=== PATIENT | female | born 1995 | race Caucasian/White ===

== ENCOUNTER 2019-08-13 10:47 | Inpatient (IN) ==
--- NOTE | 2019-08-13 11:20 | Emergency Department Note ---
History of Present Illness General Chief complaint: Abnormal Labs/Diagnostic Testing Stated complaint: JAUNDICE Time Seen by Provider: 08/13/19 11:02 Source: patient History of Present Illness Provider complaint: Itching and skin change Onset (ago): day(s) Location: face, neck, abdomen, upper extremity and lower extremity Severity: moderate Quality: + other (Itching) Relieved By: + none Associated symptoms: + nausea/vomiting (Vomited once several days ago) and + other (Diarrhea); no fever/chills and no shortness of breath Treatments prior to arrival: none This is a 23-year-old female who presents with diffuse itching and change in the coloration of her skin. The itching started 2 weeks ago. The yellowing of her eyes started 2 days ago. The patient was sent here by [facility] as she had an ultrasound of her gallbladder today which showed multiple stones in CBD dilation. She is also told that her bilirubin is elevated. She has had on and off abdominal pain in the epigastric region for about 8 months. She was seen in February of last year by a GI doctor in [place] who performed colonoscopy and endoscopy which was unremarkable. She developed itching and blood work was sent 2 days ago. This showed a bilirubin of 11. She does state that she is an occasional drinker but was a heavier drinker when she was enrolled in college. She currently denies having any abdominal pain. Her pain used to be exacerbated after eating. She denies any fever, nausea, urinary symptoms, abnormal vaginal discharge or bleeding, cough or cold symptoms, body ache or exposure to anyone with COVID-19. She does state that she has had loose diarrhea for the past several days as well as yellowish discoloration to her eyes and skin. She also threw up once several days ago. She denies any acetaminophen use. Home Medications Home Medications Medication Instructions Recorded Confirmed Type Control 1 tab PO DAILY 08/13/19 08/13/19 History Allergies Allergy/AdvReac Type Severity Reaction Status Date / Time Sulfa (Sulfonamide AdvReac Mild Hives Unverified 08/13/19 11:29 Antibiotics) Past Med/Surg History Medical History Anxiety Social History Feels Safe at Home: Yes Smoking Status: Never smoker Hx Alcohol Use: Yes Review of Systems See HPI for pertinent positives & negatives. and A total of 10 systems reviewed and were otherwise negative Physical Exam Vital Signs Vital Signs - 24 hr 08/13/19 10:55 08/13/19 11:10 08/13/19 12:34 Temperature 36.7 C Temperature Source Oral Pulse Rate 119 H 86 Pulse Rate [Left Finger] 85 Pulse Rhythm Regular Pulse Rhythm [Left Finger] Regular Pulse Strength [Left Finger] Normal Respiratory Rate 20 18 20 Respiratory Effort / Characteristics Non-Labored Spontaneous Respiratory Depth Normal Normal Respiratory Pattern Regular Blood Pressure 118/86 Blood Pressure [Right Arm] 132/71 Blood Pressure Mean 96 Blood Pressure Mean [Right Arm] 91 Blood Pressure Position [Right Arm] Sitting Pulse Oximetry 99 99 100 Oxygen Delivery Method Room Air Room Air Room Air Sepsis Recent Fever Within 48 Hours No Sepsis New/Unexplained Change in Mental Status No Sepsis Action Taken by Nursing No Action Required Constitutional: Vital signs reviewed. Eyes: Pupils are equal round reactive to light. Sclera are icteric. ENT: Pharynx is clear without erythema or exudate. Mucous membranes are moist. Neck supple without meningeal signs. Respiratory: Clear to auscultation bilaterally. Breath sounds are equal bilaterally. Cardiovascular: Regular rate and rhythm. No rubs or gallops. GI: Soft, nondistended with mild epigastric and right upper quadrant tenderness. No Rosado sign. Bowel sounds are present. Musculoskeletal: No peripheral edema. No lower extremity tenderness. Integumentary: Jaundiced. Neurological: The patient is awake and alert. No focal deficits. Psychiatric: Normal affect. Not anxious appearing. Course Administered Medications Discontinued Medications Sodium Chloride (Nss 1000ml) 1,000 mls @ 999 mls/hr IV .Q1H1M ONE Stop: 08/13/19 13:57 Last Admin: 08/13/19 13:17 Dose: 999 mls/hr Documented by: [id number] Piperacillin Sod/Tazobactam Sod (Zosyn) 4.5 gm in 120 mls @ 240 mls/hr IV NOW ONE Stop: 08/13/19 13:42 Last Admin: 08/13/19 13:29 Dose: 240 mls/hr Documented by: [id number] Piperacillin Sod/Tazobactam Sod (Zosyn) Confirm Administered Dose 4.5 gm .ROUTE .STK-MED ONE Stop: 08/13/19 13:20 Last Admin: 08/13/19 13:29 Dose: Not Given Documented by: [id number] Medical Decision Making Differential Diagnosis Cholelithiasis, choledocholithiasis, cholecystitis, pancreatitis, biliary obstruction, hyperbilirubinemia Medical Records Attestation: I reviewed the patient's medical records. I did perform a limited focused review of portions of the patient's old chart on the electronic medical record. The patient has had no prior visits to this hospital. Home Medications Current Medication List: was personally reviewed by me Laboratory Data Attestation: I reviewed the patient's lab results. Result diagrams: 08/13/19 11:10 08/13/19 11:10 Lab Results 08/13/19 08/13/19 08/13/19 Range/Units 11:10 11:10 12:38 WBC 12.89 H (4.8-10.8) K/uL RBC 4.70 (4.2-5.4) M/uL Hgb 13.1 (12.0-16.0) g/dL Hct 39.4 (37-47) % MCV 83.8 (80-100) fL MCH 27.9 (25-34) pg MCHC 33.2 (32-36) g/dL RDW Std Deviation 47.4 H (36.4-46.3) fL RDW Coeff of [place] 15.4 H (11.5-14.5) % Plt Count 366 (130-400) K/uL MPV 10.9 H (7.4-10.4) fL Immature Gran % (Auto) 0.5 % Neut % (Auto) 63.1 % Lymph % (Auto) 28.2 % [place] % (Auto) 6.6 % Eos % (Auto) 1.4 % Baso % (Auto) 0.2 % Immature Gran # (Auto) 0.07 H (0.00-0.02) K/uL Neut # (Auto) 8.12 H (1.4-6.5) K/uL Lymph # (Auto) 3.64 H (1.2-3.4) K/uL [place] # (Auto) 0.85 H (0.11-0.59) K/uL Eos # (Auto) 0.18 (0-0.5) K/uL Baso # (Auto) 0.03 (0-0.2) K/uL Sodium 138 (136-145) mmol/L Potassium 3.4 L (3.5-5.1) mmol/L Chloride 106 (98-107) mmol/L Carbon Dioxide 25 (21-32) mmol/L Anion Gap 7.0 (3-11) BUN 11 (7-18) mg/dl Creatinine 0.77 (0.6-1.2) mg/dl Est Cr Clr Drug Dosing 135.6 ml/min Est GFR ( Amer) 127.9 Est GFR (Non-Af Amer) 110.4 BUN/Creatinine Ratio 14.7 (10-20) Glucose 102 H (70-99) mg/dl Calcium 9.2 (8.5-10.1) mg/dl Total Bilirubin 11.4 H (0.2-1) mg/dl AST 28 (15-37) U/L ALT 76 (12-78) U/L Alkaline Phosphatase 324 H (45-117) U/L Total Protein 7.8 (6.4-8.2) gm/dl Albumin 3.2 L (3.4-5.0) gm/dl Globulin 4.6 H (2.5-4.0) gm/dl Albumin/Globulin Ratio 0.7 L (0.9-2) Lipase 117 (73-393) U/L Urine Color Urine Appearance (Clear) Urine pH (4.5-7.5) Ur Specific [place] (1.000-1.030) Urine Protein (Negative) Urine Glucose (UA) (Negative) Urine Ketones (Negative) Urine Blood (Negative) Urine Nitrite (Negative) Urine Bilirubin (Negative) Urine Urobilinogen (Negative) Ur Leukocyte Esterase (Negative) Urine WBC (Auto) (0-5) /hpf Urine RBC (Auto) (0-4) /hpf U Hyaline Cast (Auto) (0-5) /lpf U Epithel Cells (Auto) (0-5) /lpf Urine Bacteria (Auto) (Negative) POC Ur Test NEG (NEG) 08/13/19 Range/Units 12:38 WBC (4.8-10.8) K/uL RBC (4.2-5.4) M/uL Hgb (12.0-16.0) g/dL Hct (37-47) % MCV (80-100) fL MCH (25-34) pg MCHC (32-36) g/dL RDW Std Deviation (36.4-46.3) fL RDW Coeff of [place] (11.5-14.5) % Plt Count (130-400) K/uL MPV (7.4-10.4) fL Immature Gran % (Auto) % Neut % (Auto) % Lymph % (Auto) % [place] % (Auto) % Eos % (Auto) % Baso % (Auto) % Immature Gran # (Auto) (0.00-0.02) K/uL Neut # (Auto) (1.4-6.5) K/uL Lymph # (Auto) (1.2-3.4) K/uL [place] # (Auto) (0.11-0.59) K/uL Eos # (Auto) (0-0.5) K/uL Baso # (Auto) (0-0.2) K/uL Sodium (136-145) mmol/L Potassium (3.5-5.1) mmol/L Chloride (98-107) mmol/L Carbon Dioxide (21-32) mmol/L Anion Gap (3-11) BUN (7-18) mg/dl Creatinine (0.6-1.2) mg/dl Est Cr Clr Drug Dosing ml/min Est GFR ( Amer) Est GFR (Non-Af Amer) BUN/Creatinine Ratio (10-20) Glucose (70-99) mg/dl Calcium (8.5-10.1) mg/dl Total Bilirubin (0.2-1) mg/dl AST (15-37) U/L ALT (12-78) U/L Alkaline Phosphatase (45-117) U/L Total Protein (6.4-8.2) gm/dl Albumin (3.4-5.0) gm/dl Globulin (2.5-4.0) gm/dl Albumin/Globulin Ratio (0.9-2) Lipase (73-393) U/L Urine Color Dark Yellow Urine Appearance Clear (Clear) Urine pH 6.5 (4.5-7.5) Ur Specific [place] 1.025 (1.000-1.030) Urine Protein Negative (Negative) Urine Glucose (UA) Negative (Negative) Urine Ketones Negative (Negative) Urine Blood Negative (Negative) Urine Nitrite Positive A (Negative) Urine Bilirubin 3+ H (Negative) Urine Urobilinogen Negative (Negative) Ur Leukocyte Esterase 1+ H (Negative) Urine WBC (Auto) 5-10 H (0-5) /hpf Urine RBC (Auto) 5-10 H (0-4) /hpf U Hyaline Cast (Auto) 1-5 (0-5) /lpf U Epithel Cells (Auto) 20-30 H (0-5) /lpf Urine Bacteria (Auto) 1+ H (Negative) POC Ur Test (NEG) MDM Narrative I did evaluate the patient as noted above. The patient is presenting with jaundice, pruritus and intermittent right upper quadrant abdominal pain. Her ultrasound shows multiple gallstones within the gallbladder and CBD dilatation up to 11 mm. The patient denies any abdominal pain but does have tenderness in the right upper quadrant when examined. IV access was established. I did order a urine analysis. I did order and review the patient's blood work as noted in the electronic medical record. Her white count is 12.9. Potassium is 3.4. Bilirubin is over 11. I did discuss the case with Dr. Michaels of gastroenterology. He stated he would take the patient for ERCP at 4 PM today and recommended hospitalization by the hospitalist service. I did discuss this with the patient as well as her mother over the telephone per the patient's request. I did discuss the case with Dr. Fernandez of the hospitalist service. She was started on normal saline IV. Impression & Plan Choledocholithiasis, Hyperbilirubinemia, Acute hypokalemia, UTI (urinary tract infection) Discharge Plan Visit Data Chief Complaint: Abnormal Labs/Diagnostic Testing Stated Complaint: JAUNDICE ED Provider: Charan Yañez Discharge Problem: Choledocholithiasis, Hyperbilirubinemia, Acute hypokalemia, UTI (urinary tract infection) Patient Disposition: Being Evaluated by Hospitalist Condition: Good Forms Stand Alone Forms: My [employer] Prescriptions Prescriptions: No Action Control 1 tab PO DAILY RF: 0 Referrals Referrals: PCP,NO [Primary Care Provider] -
[2019-08-13 11:28] LABS: Basophils # (auto) 0.03 K/uL (0-0.2); Basophils % (auto) 0.2 %; Eosinophils # (auto) 0.18 K/uL (0-0.5); Eosinophils % (auto) 1.4 %; Hematocrit (blood only) 39.4 % (37-47); Hemoglobin 13.1 g/dL (12.0-16.0); Immature Granulocytes # (auto) 0.07 K/uL (0.00-0.02); Immature Granulocytes % (auto) 0.5 %; Lymphocytes # (auto) 3.64 K/uL (1.2-3.4); Lymphocytes % (auto) 28.2 %; Mean Corpuscular Hemoglobin 27.9 pg (25-34); Mean Corpuscular Hgb Conc 33.2 g/dL (32-36); Mean Corpuscular Volume 83.8 fL (80-100); Mean Platelet Volume 10.9 fL (7.4-10.4); Monocytes # (auto) 0.85 K/uL (0.11-0.59); Monocytes % (auto) 6.6 %; Neutrophils # (auto) 8.12 K/uL (1.4-6.5); Neutrophils % (auto) 63.1 %; Platelet Count 366 K/uL (130-400); RDW Coefficient of Variation 15.4 % (11.5-14.5); RDW Standard Deviation 47.4 fL (36.4-46.3); White Blood Count 12.89 K/uL (4.8-10.8)
[2019-08-13 11:58] LABS: Albumin Globulin Ratio 0.7 (0.9-2); Albumin Level 3.2 gm/dl (3.4-5.0); BUN Creatinine Ratio 14.7 (10-20); Bilirubin,Total 11.4 mg/dl (0.2-1); Calcium 9.2 mg/dl (8.5-10.1); Creatinine Clr Calc Pharmacy 135.6 ml/min; Est GFR (African American) 127.9; Est GFR (Non-African American) 110.4; Globulin 4.6 gm/dl (2.5-4.0); Potassium 3.4 mmol/L (3.5-5.1); Total Protein 7.8 gm/dl (6.4-8.2)
[2019-08-13 12:46] LABS: Appearance Urine Clear (Clear); Blood Urine Negative (Negative); Color Urine Dark Yellow; Epithelial Cell Urine Auto 20-30 /lpf (0-5); Glucose Urine UA Negative (Negative); Ketones Urine Negative (Negative); Leukocyte Esterase Urine 1+ (Negative); Nitrite Urine Positive (Negative); Protein Urine Negative (Negative); Specific Gravity Urine 1.025 (1.000-1.030); Urobilinogen Urine Negative (Negative); pH Urine 6.5 (4.5-7.5)
[2019-08-13 12:47] LABS: Bilirubin Urine 3+ (Negative)
[2019-08-13 12:48] LABS: Ictotest Urine Positive (Negative)
[2019-08-13 12:56] LABS: Bacteria Urine Automated 1+ (Negative)
[2019-08-13] MEDS ORDERED: SODIUM CHLORIDE 0.9% 1000ML 1,000 ML IV ONE (12:57)
[2019-08-13] MEDS ORDERED: PIPERACILL/TAZOBAC CONSULT ACTIVE PRN ×2 (13:13→14:44)
[2019-08-13] MEDS ORDERED: PIPERACILLIN/TAZOBACTAM 4.5 GM/120 ML BAG IV ONE (13:13)
--- NOTE | 2019-08-13 13:14 | History & Physical Report ---
Date of Service August 13, 2019 Assessment & Plan (1) Common bile duct dilation: CBD dilatation is concerning for choledocholithiasis. Her chills and leukocytosis could represent ascending cholangitis +/- early cholecystitis as well. Recent steroids may have contributed to leukocytosis as well. Send blood cx's, agree with Zosyn initiated in ER, keep NPO, and GI has been consulted for ERCP. Start copious IV fluids. (2) Hyperbilirubinemia: 2nd to CBD obstruction - likely from gallstones. Pruritis etc is all 2nd to hyperbilirubinemia. ERCP today. Will need lap zenon in the future as well - timing of such is uncertain. (3) Gallstones: Has had biliary colic episodes for months. Now with likely choledocholithiasis; cannot rule out cholangitis; cannot rule out early cholecystitis given her RUQ abd pain on exam. General surgery has been consulted for possibility of lap zenon during this admission. (4) Acute hypokalemia: add KCL to IV fluids. (5) Anxiety: previously was on SSRI - no longer taking. address as outpatient. (6) DVT prophylaxis: ambulation. defer on chemical means for now due to impending ERCP +/- cholecystectomy. of note - urine HCG was negative. COVID assessment - low risk, no symptoms of such. Travel from [place] was well over 14 days ago. Labs in am. History of Present Illness Chief Complaint: jaundice, nausea, itching Primary Care Provider: NO PCP 23yo female who presents with 8 months of intermittent epigastric post-prandial abdominal pain, 1 week of pruritis of her hands/feet, then the development of jaundice about 2 days ago. Over the last few days she has also had nausea. 1 episode of emesis about 1 week ago. Denies fevers, but has had some chills. Interestingly she says the intermittent abdominal pain has not bothered her in several days. Seen at [facility] on-[facility] this am for these complaints and was sent for RUQ u/s at [facility] which showed gallstones, 11mm CBD, and +rosado's sign. Following this RUQ u/s she was directed to the ER. She recently took 2 days of prednisone prescribed as an outpatient for her itching. She also had been taking zyrtec. COVID screen - traveled from [place] to [place] on July 22. Has had NO fever, cough, congestion, sore throat, runny nose, dyspnea, or chest symptoms. Just chills over the last day associated with the nausea. O2 sats 100% in RA at presentation today. Allergies Allergy/AdvReac Type Severity Reaction Status Date / Time Sulfa (Sulfonamide Allergy Mild Hives Unverified 08/13/19 15:04 Antibiotics) Home Medications Home Medications Medication Instructions Recorded Confirmed Type L norgest/e.estradiol-e.estrad 1 tab PO DAILY 08/13/19 08/13/19 History [[place]] Past Med/Surg History Medical History (Updated 08/13/19 @ 17:01 by Luis Fernandez) Anxiety Pilonidal cyst Surgical History History of colonoscopy (Acute) Family History (Updated 08/13/19 @ 16:35 by Luis Fernandez) Father Colorectal cancer Grandmother Gallstones Social History (Updated 08/13/19 @ 16:24 by Luis Fernandez) marital status: Single current occupational status: student other: lives in [place], [place]; attends [employer]; boyfriend in [place] Feels Safe at Home: Yes Smoking Status: Never smoker Hx Alcohol Use: Yes Alcohol type: hard liquor Alcohol Intake Frequency: Weekly Alcohol Intake Frequency Comment: 3-4x's each week, several drinks each time Hx Substance Use: No Review of Systems Constitutional: + chills; no fever, no body aches, no fatigue, no anorexia and no weight loss Eyes: no worsening vision Ear, Nose, Mouth, Throat: no nasal congestion, no nasal discharge and no sore throat Respiratory: no cough, no dyspnea and no wheezing Cardiovascular: no chest pain, no dyspnea at rest and no dyspnea on exertion Gastrointestinal: as per Subjective / HPI, + abdominal pain, + nausea and + vomiting; no constipation and no diarrhea/loose stools Genitourinary: no dysuria last menstrual cycle ~3 weeks ago Musculoskeletal: no joint pain Integumentary: + pruritus; no rash Neurologic: no localized weakness and no generalized weakness Psychiatric: + depression and + anxiety had been taking lexapro but stopped this spring Hematologic / Lymphatic: no easy bleeding Physical Exam Constitutional: + obese; no acute distress and no altered mental status Eyes: + scleral abnormality (icteric) and PERRL ENMT: Mouth: + oral mucosal abnormality (icterus ) Neck: trachea midline, no thyromegaly Respiratory: normal respiratory effort, lungs clear to auscultation Cardiovascular: Rate/Rhythm: regular rate and regular rhythm Heart Sounds: normal S1 and normal S2; no murmur Vessels: posterior tibial pulses present and dorsalis pedis pulses present; no JVD Extremities: no edema Gastrointestinal (Abdomen): Inspection/Auscultation: normal bowel sounds; abdomen not distended Percussion/Palpation: + abdomen tender (mild- RUQ) and abdomen soft; no guarding and no hepatosplenomegaly Musculoskeletal: no cyanosis or clubbing, extremities motor strength 5/5 Skin: + jaundice (from head to umbilicus ) Neurologic: deep tendon reflexes 2+ bilaterally and moves all extremities Psychiatric: A+Ox3, euthymic affect Lymphatic: no cervical lymphadenopathy Results & Data Results & Data ([facility]) Vital Signs (Past 12 Hours) Vital Signs Temp Pulse Pulse Resp BP BP Pulse Ox 08/13/19 12:34 85 20 132/71 100 08/13/19 11:10 86 18 99 08/13/19 10:55 36.7 C 119 H 20 118/86 99 Laboratory Results Laboratory Results - last 24 hr 08/13/19 08/13/19 08/13/19 11:10 11:10 12:38 WBC 12.89 H RBC 4.70 Hgb 13.1 Hct 39.4 MCV 83.8 MCH 27.9 MCHC 33.2 RDW Std Deviation 47.4 H RDW Coeff of [place] 15.4 H Plt Count 366 MPV 10.9 H Immature Gran % (Auto) 0.5 Neut % (Auto) 63.1 Lymph % (Auto) 28.2 [place] % (Auto) 6.6 Eos % (Auto) 1.4 Baso % (Auto) 0.2 Immature Gran # (Auto) 0.07 H Neut # (Auto) 8.12 H Lymph # (Auto) 3.64 H [place] # (Auto) 0.85 H Eos # (Auto) 0.18 Baso # (Auto) 0.03 PT INR APTT PTT Ratio Sodium 138 Potassium 3.4 L Chloride 106 Carbon Dioxide 25 Anion Gap 7.0 BUN 11 Creatinine 0.77 Est Cr Clr Drug Dosing 135.6 Est GFR ( Amer) 127.9 Est GFR (Non-Af Amer) 110.4 BUN/Creatinine Ratio 14.7 Glucose 102 H Calcium 9.2 Total Bilirubin 11.4 H AST 28 ALT 76 Alkaline Phosphatase 324 H Total Protein 7.8 Albumin 3.2 L Globulin 4.6 H Albumin/Globulin Ratio 0.7 L Lipase 117 Urine Color Urine Appearance Urine pH Ur Specific [place] Urine Protein Urine Glucose (UA) Urine Ketones Urine Blood Urine Nitrite Urine Bilirubin Urine Urobilinogen Ur Leukocyte Esterase Urine WBC (Auto) Urine RBC (Auto) U Hyaline Cast (Auto) U Epithel Cells (Auto) Urine Bacteria (Auto) POC Ur Test NEG 08/13/19 08/13/19 12:38 14:14 WBC RBC Hgb Hct MCV MCH MCHC RDW Std Deviation RDW Coeff of [place] Plt Count MPV Immature Gran % (Auto) Neut % (Auto) Lymph % (Auto) [place] % (Auto) Eos % (Auto) Baso % (Auto) Immature Gran # (Auto) Neut # (Auto) Lymph # (Auto) [place] # (Auto) Eos # (Auto) Baso # (Auto) PT Cancelled INR Cancelled APTT Cancelled PTT Ratio Cancelled Sodium Potassium Chloride Carbon Dioxide Anion Gap BUN Creatinine Est Cr Clr Drug Dosing Est GFR ( Amer) Est GFR (Non-Af Amer) BUN/Creatinine Ratio Glucose Calcium Total Bilirubin AST ALT Alkaline Phosphatase Total Protein Albumin Globulin Albumin/Globulin Ratio Lipase Urine Color Dark Yellow Urine Appearance Clear Urine pH 6.5 Ur Specific [place] 1.025 Urine Protein Negative Urine Glucose (UA) Negative Urine Ketones Negative Urine Blood Negative Urine Nitrite Positive A Urine Bilirubin 3+ H Urine Urobilinogen Negative Ur Leukocyte Esterase 1+ H Urine WBC (Auto) 5-10 H Urine RBC (Auto) 5-10 H U Hyaline Cast (Auto) 1-5 U Epithel Cells (Auto) 20-30 H Urine Bacteria (Auto) 1+ H POC Ur Test Diagnostic Findings RUQ us: IMPRESSION: 1. Stone filled gallbladder. The technologist reports a positive sonographic Rosado sign. 2. Dilated common bile duct measuring up to 11 mm in diameter. Code Status & VTE Plan Code Status full code VTE Prophylaxis Plan VTE Prophylaxis will be ordered: No PG Care Time/CCT Total # of Minutes Spent Total Time Spent with Patient: Total time spent is greater than 50% in coordination of care (as documented) at patient's floor/unit and/or counseling patient: Coding Level of Care Code 06855 Initial Inpt Care Lvl 2 Diagnoses Common bile duct dilation K83.8 Hyperbilirubinemia E80.6 Gallstones K80.20 Acute hypokalemia E87.6 Anxiety F41.9 DVT prophylaxis Z29.9
[2019-08-13] MEDS ORDERED: PIPERACILLIN/TAZOBACTAM 4.5 GM/120ML D5W ONE (13:19)
--- NOTE | 2019-08-13 13:48 | Gastrointestinal Consultation ---
Date of Consultation August 13, 2019 Assessment & Plan (1) Dilation of biliary tract: 23 year old female with biliary colic x 6 months presenting w/ ongoing biliary symptoms, jaundice and pruritus x 1 week. ABD US concerning for gallstones, biliary dilation w/ CBD 11 mm, TB 11 concerning for CBD stone. She is afebrile but does report intermittent chills w/ leukocytosis at 13. NPO Coag studies sent Start ABX as ordered Consult general surgery to discuss timing of cholecystectomy Plan for ERCP today for decompression Analgesia PRN Antiemetics PRN Trend LFTs Thank you for allowing us to participate in the care of this patient. Please call with any acute changes, questions or concerns. Please see addendum below with additional recommendation from my supervising physician, Dr. Michaels. Present on Admission?: Yes (2) Gallstone: (3) Total bilirubin, elevated: Supervising Physician Co-Signing Physician Notes I saw and evaluated the patient. She presents with intermittent discomfort over the last 6 to 7 months notable for postprandial nausea. Over the past 2 weeks she has noted itching and began to develop jaundice about 1 week ago. Over the past few days she is noticed intermittent shaking chills at home. Today she underwent right upper quadrant ultrasound which showed evidence of a Rosado sign and a dilated common bile duct. Physical exam Pleasant appearing female Tender in the right upper quadrant Impression: Patient presents with what appears to be complications related to choledocholithiasis and perhaps cholangitis given the white blood cell count elevation, jaundice and objective fever at home. Given this the patient will benefit from urgent biliary decompression with ERCP this afternoon despite the Covid-19 epidemic. I have discussed the risks and benefits of the procedure to include bleeding, infection, perforation and pancreatitis. History of Present Illness Reason for Consultation: elevated TBILI, gallstones Requesting Physician: Jim Attending Physician: Jim History of Present Illness 23 year old female, [place] resident in [place] visiting her boyfriend who presented though the ED w/ abnormal labs, subsequently admitted with concerns for biliary obstruction, cholangitis. GI asked to evaluate. Pt was seen and evaluated in the ED. Suggests over the past 6 or so months she has had post-prandially pain expl ained as an aching sensation w/ radiation midline and to her back lasting about 30/60 minutes. Mild associated nausea but no vomiting. Suggests in [place] she underwent EGD/Colonosocpy for these symptoms and without any findings. Did not have any abdominal imaging. Suggests about 1-2 weeks ago started to notice generalized itching, dark urine, intermittent bryce-colored stools, epigastric pain and yellowing to her skin. Was evaluated by outside provider and sent to the ED as labs show TB > 11, imaging w/ stones and CBD dilation ETOH occasional. On PO Iron but no other vitamins or supplements. No herbal teas. No new medications. No blood thinners. No prior pregnancies. + family history of GB disease in her grandmother ABD US: Stone filled gallbladder. The technologist reports a positive so nographic Rosado sign. Dilated common bile duct measuring up to 11 mm in diameter Allergies Allergy/AdvReac Type Severity Reaction Status Date / Time Sulfa (Sulfonamide Allergy Mild Hives Unverified 08/13/19 15:04 Antibiotics) Home Medications Home Medications Medication Instructions Recorded Confirmed Type L norgest/e.estradiol-e.estrad 1 tab PO DAILY 08/13/19 08/13/19 History [Daysee] Patient History Medical History Anxiety Surgical History History of colonoscopy (Acute) Social History Feels Safe at Home: Yes Smoking Status: Never smoker Hx Alcohol Use: Yes Review of Systems Constitutional: + chills; no fever Respiratory: no cough Cardiovascular: no chest pain Gastrointestinal: + abdominal pain and + nausea; no coffee ground emesis, no hematemesis, no change in stools, no blood in stools and no melena Physical Exam Constitutional: no acute distress Neck: trachea midline Respiratory: normal respiratory effort Cardiovascular: Rate/Rhythm: regular rate Gastrointestinal (Abdomen): Percussion/Palpation: abdomen soft; abdomen nontender Skin: no rashes, warm and dry + jaundice Results & Data ([facility]) Vital Signs (Past 12 Hours) Vital Signs Temp Pulse Pulse Resp BP BP Pulse Ox 08/13/19 12:34 85 20 132/71 100 08/13/19 11:10 86 18 99 08/13/19 10:55 36.7 C 119 H 20 118/86 99 Laboratory Results 08/13/19 08/13/1908/12/20 Range/Units 12:38 12:38 11:10 WBC 12.89 H (4.8-10.8) K/uL RBC 4.70 (4.2-5.4) M/uL Hgb 13.1 (12.0-16.0) g/dL Hct 39.4 (37-47) % MCV 83.8 (80-100) fL MCH 27.9 (25-34) pg MCHC 33.2 (32-36) g/dL RDW Std Deviation 47.4 H (36.4-46.3) fL RDW Coeff of [place] 15.4 H (11.5-14.5) % Plt Count 366 (130-400) K/uL MPV 10.9 H (7.4-10.4) fL Immature Gran % (Auto) 0.5 % Neut % (Auto) 63.1 % Lymph % (Auto) 28.2 % [place] % (Auto) 6.6 % Eos % (Auto) 1.4 % Baso % (Auto) 0.2 % Immature Gran # (Auto) 0.07 H (0.00-0.02) K/uL Neut # (Auto) 8.12 H (1.4-6.5) K/uL Lymph # (Auto) 3.64 H (1.2-3.4) K/uL [place] # (Auto) 0.85 H (0.11-0.59) K/uL Eos # (Auto) 0.18 (0-0.5) K/uL Baso # (Auto) 0.03 (0-0.2) K/uL Sodium (136-145) mmol/L Potassium (3.5-5.1) mmol/L Chloride (98-107) mmol/L Carbon Dioxide (21-32) mmol/L Anion Gap (3-11) BUN (7-18) mg/dl Creatinine (0.6-1.2) mg/dl Est Cr Clr Drug Dosing ml/min Est GFR ( Amer) Est GFR (Non-Af Amer) BUN/Creatinine Ratio (10-20) Glucose (70-99) mg/dl Calcium (8.5-10.1) mg/dl Total Bilirubin (0.2-1) mg/dl AST (15-37) U/L ALT (12-78) U/L Alkaline Phosphatase (45-117) U/L Total Protein (6.4-8.2) gm/dl Albumin (3.4-5.0) gm/dl Globulin (2.5-4.0) gm/dl Albumin/Globulin Ratio (0.9-2) Lipase (73-393) U/L Urine Color Dark Yellow Urine Appearance Clear (Clear) Urine pH 6.5 (4.5-7.5) Ur Specific [place] 1.025 (1.000-1.030) Urine Protein Negative (Negative) Urine Glucose (UA) Negative (Negative) Urine Ketones Negative (Negative) Urine Blood Negative (Negative) Urine Nitrite Positive A (Negative) Urine Bilirubin 3+ H (Negative) Urine Urobilinogen Negative (Negative) Ur Leukocyte Esterase 1+ H (Negative) Urine WBC (Auto) 5-10 H (0-5) /hpf Urine RBC (Auto) 5-10 H (0-4) /hpf U Hyaline Cast (Auto) 1-5 (0-5) /lpf U Epithel Cells (Auto) 20-30 H (0-5) /lpf Urine Bacteria (Auto) 1+ H (Negative) POC Ur Test NEG (NEG) 08/13/19 Range/Units 11:10 WBC (4.8-10.8) K/uL RBC (4.2-5.4) M/uL Hgb (12.0-16.0) g/dL Hct (37-47) % MCV (80-100) fL MCH (25-34) pg MCHC (32-36) g/dL RDW Std Deviation (36.4-46.3) fL RDW Coeff of [place] (11.5-14.5) % Plt Count (130-400) K/uL MPV (7.4-10.4) fL Immature Gran % (Auto) % Neut % (Auto) % Lymph % (Auto) % [place] % (Auto) % Eos % (Auto) % Baso % (Auto) % Immature Gran # (Auto) (0.00-0.02) K/uL Neut # (Auto) (1.4-6.5) K/uL Lymph # (Auto) (1.2-3.4) K/uL [place] # (Auto) (0.11-0.59) K/uL Eos # (Auto) (0-0.5) K/uL Baso # (Auto) (0-0.2) K/uL Sodium 138 (136-145) mmol/L Potassium 3.4 L (3.5-5.1) mmol/L Chloride 106 (98-107) mmol/L Carbon Dioxide 25 (21-32) mmol/L Anion Gap 7.0 (3-11) BUN 11 (7-18) mg/dl Creatinine 0.77 (0.6-1.2) mg/dl Est Cr Clr Drug Dosing 135.6 ml/min Est GFR ( Amer) 127.9 Est GFR (Non-Af Amer) 110.4 BUN/Creatinine Ratio 14.7 (10-20) Glucose 102 H (70-99) mg/dl Calcium 9.2 (8.5-10.1) mg/dl Total Bilirubin 11.4 H (0.2-1) mg/dl AST 28 (15-37) U/L ALT 76 (12-78) U/L Alkaline Phosphatase 324 H (45-117) U/L Total Protein 7.8 (6.4-8.2) gm/dl Albumin 3.2 L (3.4-5.0) gm/dl Globulin 4.6 H (2.5-4.0) gm/dl Albumin/Globulin Ratio 0.7 L (0.9-2) Lipase 117 (73-393) U/L Urine Color Urine Appearance (Clear) Urine pH (4.5-7.5) Ur Specific [place] (1.000-1.030) Urine Protein (Negative) Urine Glucose (UA) (Negative) Urine Ketones (Negative) Urine Blood (Negative) Urine Nitrite (Negative) Urine Bilirubin (Negative) Urine Urobilinogen (Negative) Ur Leukocyte Esterase (Negative) Urine WBC (Auto) (0-5) /hpf Urine RBC (Auto) (0-4) /hpf U Hyaline Cast (Auto) (0-5) /lpf U Epithel Cells (Auto) (0-5) /lpf Urine Bacteria (Auto) (Negative) POC Ur Test (NEG)
[2019-08-13] MEDS ORDERED: BUPIVACAINE 0.5 % 5 MG/1 ML MPF 30ML VIAL ONE (14:57)
[2019-08-13] MEDS ORDERED: CEFAZOLIN 250 MG/ML 1 GM VIAL ONE (14:57)
[2019-08-13] MEDS ORDERED: HEPARIN (PORCINE) 1000 UNIT/ML 10 ML (CATH LAB USE ONLY) ONE (14:58)
[2019-08-13] MEDS ORDERED: ONDANSETRON INJ 2 MG/ML 2 ML VIAL IV PRN ×2 (15:00→16:51)
[2019-08-13] MEDS ORDERED: fentaNYL citrate 100 MCG/2 ML VIAL ONE ×3 (15:10→17:52)
[2019-08-13] MEDS ORDERED: MIDAZOLAM HCL 1 MG/ML 2ML VIAL ONE (15:10)
--- NOTE | 2019-08-13 15:10 | Surgery Consultation ---
Date of Consultation August 13, 2019 Assessment & Plan (1) Gallstone: This patient has a dilated common bile duct with a gallbladder that has multiple stones within it. She is going to have an ERCP with a probable diagnosis of choledocholithiasis. The patient also has tenderness in the right upper quadrant and a positive Rosado sign was noted during her ultrasound. She has a white count elevation as well. She may also have early acute cholecystitis. I feel that laparoscopic cholecystectomy is indicated. I feel that it the risks of having acute cholecystitis that may progress and the risk of repeat choledocholithiasis without removing the gallbladder would outweigh the risks of COVID-19. I explained to her the laparoscopic cholecystectomy and the possible need to convert to an open procedure. We discussed the possible complications. I answered her questions and she has signed a consent form. History of Present Illness Reason for Consultation: Jaundice Requesting Physician: Luis Fernandez MD Attending Physician: Luis Fernandez MD History of Present Illness This is a 23-year-old female who presented to the emergency room after noticing that her skin was jaundiced. The patient states that about 8 months ago she began to have discomfort mostly in the right upper quadrant. The discomfort always followed eating. It did not matter what kind of food she ate. She had mild nausea on occasion. There is no vomiting. She had no change in her bowel habits. There was no melena or hematochezia. She underwent an EGD and a colonoscopy and stated that they were essentially normal. About 2 weeks ago she began to notice some itching mostly of her feet and hands and then noticed the jaundice. She denies abdominal pain at the present time. She has no fever or chills. Allergies Allergy/AdvReac Type Severity Reaction Status Date / Time Sulfa (Sulfonamide Allergy Mild Hives Unverified 08/13/19 15:04 Antibiotics) Home Medications Home Medications Medication Instructions Recorded Confirmed Type L norgest/e.estradiol-e.estrad 1 tab PO DAILY 08/13/19 08/13/19 History [Daysee] Patient History Medical History (Updated 08/13/19 @ 14:12 by Charan Yañez MD) Anxiety Surgical History (Updated 08/13/19 @ 15:05 by Fernanda Collins RN) History of colonoscopy (Acute) Social History marital status: Single current occupational status: student other: lives in [place], [place]; attends [employer]; boyfriend in [place] Feels Safe at Home: Yes Smoking Status: Never smoker Hx Alcohol Use: Yes Alcohol type: hard liquor Alcohol Intake Frequency: Weekly Alcohol Intake Frequency Comment: 3-4x's each week, several drinks each time Hx Substance Use: No Review of Systems Review of Systems: All systems reviewed & are unremarkable except as noted in HPI & below Physical Exam Constitutional: no acute distress Respiratory: normal respiratory effort, lungs clear to auscultation Cardiovascular: Rate/Rhythm: regular rate and regular rhythm Gastrointestinal (Abdomen): Inspection/Auscultation: abdomen not distended Percussion/Palpation: + abdomen tender (Tenderness to palpation in the right subcostal region) and abdomen soft Skin: no rashes, warm and dry Lymphatic: no cervical lymphadenopathy Results & Data Vital Signs (Past 12 Hours) Vital Signs Temp Pulse Pulse Resp BP BP Pulse Ox 08/13/19 14:30 85 17 133/78 99 08/13/19 13:30 88 19 100 08/13/19 13:00 85 17 100 08/13/19 12:34 85 20 132/71 100 08/13/19 12:33 85 18 100 08/13/19 12:32 85 23 132/71 100 08/13/19 12:00 88 17 98 08/13/19 11:30 88 19 99 08/13/19 11:15 93 H 19 99 08/13/19 11:10 86 18 99 08/13/19 10:55 36.7 C 119 H 20 118/86 99 Laboratory Results 08/13/19 08/13/19 08/13/19 Range/Units 14:14 12:38 12:38 WBC (4.8-10.8) K/uL RBC (4.2-5.4) M/uL Hgb (12.0-16.0) g/dL Hct (37-47) % MCV (80-100) fL MCH (25-34) pg MCHC (32-36) g/dL RDW Std Deviation (36.4-46.3) fL RDW Coeff of [place] (11.5-14.5) % Plt Count (130-400) K/uL MPV (7.4-10.4) fL Immature Gran % (Auto) % Neut % (Auto) % Lymph % (Auto) % [place] % (Auto) % Eos % (Auto) % Baso % (Auto) % Immature Gran # (Auto) (0.00-0.02) K/uL Neut # (Auto) (1.4-6.5) K/uL Lymph # (Auto) (1.2-3.4) K/uL [place] # (Auto) (0.11-0.59) K/uL Eos # (Auto) (0-0.5) K/uL Baso # (Auto) (0-0.2) K/uL PT Cancelled INR Cancelled APTT Cancelled PTT Ratio Cancelled Sodium (136-145) mmol/L Potassium (3.5-5.1) mmol/L Chloride (98-107) mmol/L Carbon Dioxide (21-32) mmol/L Anion Gap (3-11) BUN (7-18) mg/dl Creatinine (0.6-1.2) mg/dl Est Cr Clr Drug Dosing ml/min Est GFR ( Amer) Est GFR (Non-Af Amer) BUN/Creatinine Ratio (10-20) Glucose (70-99) mg/dl Calcium (8.5-10.1) mg/dl Total Bilirubin (0.2-1) mg/dl AST (15-37) U/L ALT (12-78) U/L Alkaline Phosphatase (45-117) U/L Total Protein (6.4-8.2) gm/dl Albumin (3.4-5.0) gm/dl Globulin (2.5-4.0) gm/dl Albumin/Globulin Ratio (0.9-2) Lipase (73-393) U/L Urine Color Dark Yellow Urine Appearance Clear (Clear) Urine pH 6.5 (4.5-7.5) Ur Specific [place] 1.025 (1.000-1.030) Urine Protein Negative (Negative) Urine Glucose (UA) Negative (Negative) Urine Ketones Negative (Negative) Urine Blood Negative (Negative) Urine Nitrite Positive A (Negative) Urine Bilirubin 3+ H (Negative) Urine Urobilinogen Negative (Negative) Ur Leukocyte Esterase 1+ H (Negative) Urine WBC (Auto) 5-10 H (0-5) /hpf Urine RBC (Auto) 5-10 H (0-4) /hpf U Hyaline Cast (Auto) 1-5 (0-5) /lpf U Epithel Cells (Auto) 20-30 H (0-5) /lpf Urine Bacteria (Auto) 1+ H (Negative) POC Ur Test NEG (NEG) 08/13/19 08/13/19 Range/Units 11:10 11:10 WBC 12.89 H (4.8-10.8) K/uL RBC 4.70 (4.2-5.4) M/uL Hgb 13.1 (12.0-16.0) g/dL Hct 39.4 (37-47) % MCV 83.8 (80-100) fL MCH 27.9 (25-34) pg MCHC 33.2 (32-36) g/dL RDW Std Deviation 47.4 H (36.4-46.3) fL RDW Coeff of [place] 15.4 H (11.5-14.5) % Plt Count 366 (130-400) K/uL MPV 10.9 H (7.4-10.4) fL Immature Gran % (Auto) 0.5 % Neut % (Auto) 63.1 % Lymph % (Auto) 28.2 % [place] % (Auto) 6.6 % Eos % (Auto) 1.4 % Baso % (Auto) 0.2 % Immature Gran # (Auto) 0.07 H (0.00-0.02) K/uL Neut # (Auto) 8.12 H (1.4-6.5) K/uL Lymph # (Auto) 3.64 H (1.2-3.4) K/uL [place] # (Auto) 0.85 H (0.11-0.59) K/uL Eos # (Auto) 0.18 (0-0.5) K/uL Baso # (Auto) 0.03 (0-0.2) K/uL PT INR APTT PTT Ratio Sodium 138 (136-145) mmol/L Potassium 3.4 L (3.5-5.1) mmol/L Chloride 106 (98-107) mmol/L Carbon Dioxide 25 (21-32) mmol/L Anion Gap 7.0 (3-11) BUN 11 (7-18) mg/dl Creatinine 0.77 (0.6-1.2) mg/dl Est Cr Clr Drug Dosing 135.6 ml/min Est GFR ( Amer) 127.9 Est GFR (Non-Af Amer) 110.4 BUN/Creatinine Ratio 14.7 (10-20) Glucose 102 H (70-99) mg/dl Calcium 9.2 (8.5-10.1) mg/dl Total Bilirubin 11.4 H (0.2-1) mg/dl AST 28 (15-37) U/L ALT 76 (12-78) U/L Alkaline Phosphatase 324 H (45-117) U/L Total Protein 7.8 (6.4-8.2) gm/dl Albumin 3.2 L (3.4-5.0) gm/dl Globulin 4.6 H (2.5-4.0) gm/dl Albumin/Globulin Ratio 0.7 L (0.9-2) Lipase 117 (73-393) U/L Urine Color Urine Appearance (Clear) Urine pH (4.5-7.5) Ur Specific [place] (1.000-1.030) Urine Protein (Negative) Urine Glucose (UA) (Negative) Urine Ketones (Negative) Urine Blood (Negative) Urine Nitrite (Negative) Urine Bilirubin (Negative) Urine Urobilinogen (Negative) Ur Leukocyte Esterase (Negative) Urine WBC (Auto) (0-5) /hpf Urine RBC (Auto) (0-4) /hpf U Hyaline Cast (Auto) (0-5) /lpf U Epithel Cells (Auto) (0-5) /lpf Urine Bacteria (Auto) (Negative) POC Ur Test (NEG) Diagnostic Findings US abdomen complete CLINICAL HISTORY: ABDOMINAL PAIN, JAUNDICE COMPARISON STUDY: No previous studies for comparison. FINDINGS: Pancreas appears normal as visualized. The liver appears sonographically normal. There is a stone filled gallbladder. The technologist reports a positive sonographic Rosado sign. The common bile duct is dilated measuring up to 11 mm. The spleen measures 12 cm in length. No aortic or IVC abnormalities are visualized. The right kidney measures 9.9 cm in length. The left kidney measures 11.2 cm in length. There is no hydronephrosis. IMPRESSION: 1. Stone filled gallbladder. The technologist reports a positive sonographic Rosado sign. 2. Dilated common bile duct measuring up to 11 mm in diameter.
--- NOTE | 2019-08-13 15:25 | Anesthesiology Consultation ---
Date of Service August 13, 2019 Assessment & Plan Chart Review Chart Review: Acceptable Risk for Surgery and charge entry specialist initiated Consults Requested none History Surgery Operation Date: 08/13/19 07:00 Proposed Procedures p Endoscopic Retrograde Cholangiopancreatogram - Chi craig Laparoscopic Cholecystectomy - Austin Granda MD Height/Weight Height: 5 ft 7 in Weight: 93.4 kg Allergies Allergy/AdvReac Type Severity Reaction Status Date / Time Sulfa (Sulfonamide Allergy Mild Hives Unverified 08/13/19 15:04 Antibiotics) Medications Home Medications Medication Instructions Recorded Confirmed Last Taken L norgest/e.estradiol-e.estrad 1 tab PO DAILY 08/13/19 08/13/19 08/12/19 22:00 [Daysee] NPO Date Last Intake of Fluids: 08/13/19 Time Last Intake of Fluids: 10:00 Date Last Intake of Solids: 08/13/19 Time Last Intake of Solids: 10:00 Past Medical History Medical History Anxiety Pilonidal cyst Past Family History Family History Father Colorectal cancer Grandmother Gallstones Past Surgical History Surgical History History of colonoscopy (Acute) Social History Smoking Status: Never smoker Hx Alcohol Use: Yes Physical Exam Vital Signs Last Vital Signs Temp 36.7 C 08/13/19 15:07 Pulse 97 H 08/13/19 15:07 Resp 18 08/13/19 15:07 BP 122/81 08/13/19 15:07 Pulse Ox 98 08/13/19 15:07 Testing Laboratory Results 08/13/19 11:10 08/13/19 11:10 PT Cancelled 08/13/19 14:14 INR Cancelled 08/13/19 14:14 APTT Cancelled 08/13/19 14:14 Urine Color Dark Yellow 08/13/19 12:38 Urine Appearance Clear (Clear) 08/13/19 12:38 Urine pH 6.5 (4.5-7.5) 08/13/19 12:38 Ur Specific [place] 1.025 (1.000-1.030) 08/13/19 12:38 Urine Protein Negative (Negative) 08/13/19 12:38 Urine Glucose (UA) Negative (Negative) 08/13/19 12:38 Urine Ketones Negative (Negative) 08/13/19 12:38 Urine Nitrite Positive (Negative) A 08/13/19 12:38 Ur Leukocyte Esterase 1+ (Negative) H 08/13/19 12:38 Urine WBC (Auto) 5-10 /hpf (0-5) H 08/13/19 12:38 Urine RBC (Auto) 5-10 /hpf (0-4) H 08/13/19 12:38 U Hyaline Cast (Auto) 1-5 /lpf (0-5) 08/13/19 12:38 U Epithel Cells (Auto) 20-30 /lpf (0-5) H 08/13/19 12:38 Urine Bacteria (Auto) 1+ (Negative) H 08/13/19 12:38 08/13/19 12:38 POC Ur Test NEG
[2019-08-13] MEDS ORDERED: SCOPOLAMINE 1.5 MG TDSY ONE (15:35)
[2019-08-13] MEDS ORDERED: INDOMETHACIN 50 MG SUPP PR ONE (16:17)
[2019-08-13] MEDS ORDERED: ROCURONIUM BROMIDE 10 MG/ML 5 ML VIAL ONE (16:45)
[2019-08-13] MEDS ORDERED: PROPOFOL IV EMULSION 10 MG/ML 20 ML VIAL IV ONE (16:45)
[2019-08-13] MEDS ORDERED: LIDOCAINE HCL 2% 2 ML VIAL/AMP(20MG/ML) INFIL ONE (16:45)
[2019-08-13] MEDS ORDERED: NEOSTIGMINE METHYLSULFATE 5 MG/5 ML SYR ONE (16:45)
[2019-08-13] MEDS ORDERED: GLYCOPYRROLATE 0.2 MG/ML VIAL ONE (16:45)
[2019-08-13] MEDS ORDERED: SUCCINYLCHOLINE CHLORIDE 20 MG/ML 10 ML VIAL ONE (16:45)
[2019-08-13] MEDS ORDERED: fentaNYL citrate 100 MCG/2 ML VIAL IV PRN (16:51)
[2019-08-13] MEDS ORDERED: HYDROmorphone INJ 2 MG/ML SYR/VIAL IV PRN (16:51)
[2019-08-13] MEDS ORDERED: KETOROLAC 30 MG/ML VIAL IV PRN (16:51)
[2019-08-13] MEDS ORDERED: ePHEDrine sulfate 50 MG/ML AMP IV PRN (16:51)
[2019-08-13] MEDS ORDERED: ATROPINE SULFATE 0.1 MG/ML 10ML SYR IV PRN (16:51)
--- NOTE | 2019-08-13 17:15 | Post Operative Brief Note ---
Immediate Post Op Note v1 Date of Surgery August 13, 2019 Pre & Post Diagnosis Operation Date: 08/13/19 07:00 Pre-Op Diagnosis: CHOLEDOCHOLITHIASIS Post-Op Diagnosis: CHOLEDOCHOLITHIASIS I identified the patient and participated in the time-out.: Yes Procedure Operation Date: 08/13/19 07:00 Actual Procedures p Endoscopic Retrograde Cholangiopancreatogram,sphincterotomy, common bile stone removal (Not Applicable) - Chi craig Laparoscopic Cholecystectomy(Not Applicable) - Austin Granda MD Surgeon Chi Michaels Hull Inspector none Estimated Blood Loss 2 Findings Consistent with Post-Op Diagnosis
--- NOTE | 2019-08-13 17:15 | GI REPORT ---
Patient Name: Priscilla Madden Procedure Date: 08/13/2019 4:18 PM Date of : 1995 Admit Type: Inpatient Age: 23 Gender: Female Attending MD: Chi Michaels DO Procedure: ERCP Providers: Chi Michaels DO Referring MD: Luis Fernandez, Austin Granda MD Indications: Abdominal pain of suspected biliary origin, Suspected ascending cholangitis, Jaundice Medicines: General Anesthesia Complications: No immediate complications. Estimated blood loss: Minimal. Estimated Blood Loss: Estimated blood loss was minimal. Procedure: Pre-Anesthesia Assessment: - Prior to the procedure, a History and Physical was performed, and patient medications, allergies and sensitivities were reviewed. The patient's tolerance of previous anesthesia was reviewed. - The risks and benefits of the procedure and the sedation options and risks were discussed with the patient. All questions were answered and informed consent was obtained. - Patient identification and proposed procedure were verified prior to the procedure by the physician, the nurse and the application defense manager. The procedure was verified in the procedure room. - Pre-procedure physical examination revealed no contraindications to sedation. - ASA Grade Assessment: III - A patient with severe systemic disease. - After reviewing the risks and benefits, the patient was deemed in satisfactory condition to undergo the procedure. - The anesthesia plan was to use general anesthesia. - Immediately prior to administration of medications, the patient was re-assessed for adequacy to receive sedatives. - The heart rate, respiratory rate, oxygen saturations, blood pressure, adequacy of pulmonary ventilation, and response to care were monitored throughout the procedure. - The physical status of the patient was re-assessed after the procedure. After obtaining informed consent, the scope was passed under direct vision. Throughout the procedure, the patient's blood pressure, pulse, and oxygen saturations were monitored continuously.The ERCP was accomplished without difficulty. The patient tolerated the procedure well. The Scope was introduced through the mouth, and advanced to the duodenum and used to inject contrast into the bile duct. Findings: The nursing administrator film was normal. The esophagus was successfully intubated under direct vision. The scope was advanced to a normal major papilla in the descending duodenum without detailed examination of the pharynx, larynx and associated structures, and upper GI tract. The upper GI tract was grossly normal. The major papilla was congested. The bile duct was deeply cannulated with the short-nosed traction sphincterotome and guidewire. Contrast was injected. I personally interpreted the bile duct images. Contrast extended to the entire biliary tree. The main bile duct was diffusely dilated. The largest diameter was 10 mm. The biliary orifice was stenotic. This appeared benign. The lower third of the main bile duct contained filling defect(s). The upper third of the main bile duct contained a segmental irregularity maifest by narrowing suggestive of Mirizzis syndrome. The gallbladder contained multiple filling defects thought to be stones. Biliary sphincterotomy was made with a monofilament Fusion OMNI sphincterotome using ERBE electrocautery. The sphincterotomy oozed blood. The biliary tree was swept with a 15 mm balloon starting at the bifurcation. One stone was removed. No stones remained. 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 Bile flowed through the stent. The stent was in good position. The endoscope was withdrawn from the patient. The total fluoroscopy exposure time was 1 minute and 38 seconds. Indomethacin 100 mg was given via suppository to decrease the risk of post-ERCP pancreatitis (PEP). Impression: - The major papilla appeared congested. - Biliary papillary stenosis, benign. 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 - Choledocholithiasis was found. Complete removal was accomplished by biliary sphincterotomy and balloon extraction. - One biliary stent was placed into the common bile duct. - Indomethacin given to decrease risk of post-ERCP pancreatitis. Recommendation: - Avoid aspirin and nonsteroidal anti-inflammatory medicines for 1 week. - Repeat ERCP in 6 weeks to remove stent. - Use broad spectrum antibiotics for 10 days. Chi Michaels D.O. Chi Michaels DO 08/13/2019 5:14:24 PM This report has been signed electronically. Note Initiated On: 08/13/2019 4:18 PM Number of Addenda: 0 I attest to the content of the Intraoperative Record and orders documented therein, exceptions below {[id number]}
--- NOTE | 2019-08-13 17:16 | Communication Note ---
Date of Service: August 13, 2019 The patient underwent ERCP late this afternoon for suspected cholangitis. 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
--- NOTE | 2019-08-13 17:22 | Fluoroscopy Report ---
INTRAOPERATIVE RADIOGRAPHS CLINICAL HISTORY: ERCP. Fluoroscopy time: 39 seconds. FINDINGS: 11 spot fluoroscopic images of the right upper quadrant from an ERCP procedure are obtained . There is successful cannulation of the common bile duct. This appears dilated following contrast op acification. A balloon sweep is performed. No significant intrahepatic biliary ductal dilatation is i dentified. Contrast in the gallbladder outlines gallstones. The final image shows a common bile duct stent in place. IMPRESSION: Intraoperative ERCP images as above with placement of a common bile duct stent. Electronically signed by: Regis Ness M.D. 08/13/2019 5:21 PM
[2019-08-13] MEDS ORDERED: KETOROLAC 30 MG/ML VIAL ONE (18:27)
--- NOTE | 2019-08-13 18:36 | Post Operative Brief Note ---
Immediate Post Op Note v1 Date of Surgery August 13, 2019 Pre & Post Diagnosis Operation Date: 08/13/19 07:00 Pre-Op Diagnosis: Abdominal pain , jaundice, stone filled gallbladder, with dilated common bile duct Post-Op Diagnosis: Abdominal pain , jaundice, stone filled gallbladder, with dilated common bile duct I identified the patient and participated in the time-out.: Yes Procedure Operation Date: 08/13/19 07:00 Actual Procedures p Endoscopic Retrograde Cholangiopancreatogram,sphincterotomy, common bile stone removal (Not Applicable) - [place] craig Laparoscopic Cholecystectomy(Not Applicable) - Austin Granda MD Surgeon Austin Granda MD Safety Counselor none Estimated Blood Loss 7 (2=ERCP 5+ Lap Arlene ) Findings Consistent with Post-Op Diagnosis
[2019-08-13] MEDS ORDERED: MoRPHine SULFATE 4 MG/ML 1 ML CARP\\VIAL IV PRN (19:26)
--- NOTE | 2019-08-13 20:09 | Anesthesiology Progress Note ---
Date of Service August 13, 2019 Anesthesia Post Procedure Vital Signs Vital Signs: Temp Pulse Pulse Pulse Resp BP BP 08/13/19 20:07 36.3 C L 74 15 122/77 08/13/19 19:15 36.7 C 72 14 123/75 08/13/19 19:10 36.2 C L 69 20 130/72 08/13/19 19:00 70 20 119/69 08/13/19 18:50 71 20 124/72 08/13/19 18:43 36.2 C L 71 16 119/69 08/13/19 15:07 36.7 C 97 H 18 122/81 08/13/19 14:30 36.5 C 85 94 H 18 133/78 127/85 08/13/19 13:30 88 19 08/13/19 13:00 85 17 08/13/19 12:34 85 20 132/71 08/13/19 12:33 85 18 08/13/19 12:32 85 23 132/71 08/13/19 12:00 88 17 08/13/19 11:30 88 19 08/13/19 11:15 93 H 19 08/13/19 11:10 86 18 08/13/19 10:55 36.7 C 119 H 20 118/86 Pulse Ox 08/13/19 20:07 97 08/13/19 19:15 100 08/13/19 19:10 99 08/13/19 19:00 99 08/13/19 18:50 99 08/13/19 18:43 99 08/13/19 15:07 98 08/13/19 14:30 97 08/13/19 13:30 100 08/13/19 13:00 100 08/13/19 12:34 100 08/13/19 12:33 100 08/13/19 12:32 100 08/13/19 12:00 98 08/13/19 11:30 99 08/13/19 11:15 99 08/13/19 11:10 99 08/13/19 10:55 99 Transfer of Care Handoff Completed per policy Notes Mental Status: alert / awake / arousable and participated in evaluation Patient Amnestic to Procedure: Yes Nausea / Vomiting: adequately controlled Pain: adequately controlled Airway Patency, RR, SpO2: stable & adequate BP & HR: stable & adequate Hydration State: stable & adequate Anesthetic Complications: no major complications apparent
--- NOTE | 2019-08-13 20:53 | Operative Report (OR) ---
DATE OF OPERATION: 08/13/2019 PREOPERATIVE DIAGNOSES: Cholelithiasis, choledocholithiasis. POSTOPERATIVE DIAGNOSES: Cholelithiasis, choledocholithiasis. PROCEDURE: Laparoscopic cholecystectomy. SURGEON: Austin Granda MD. FINDINGS: This patient had some edema surrounding the gallbladder. There were multiple stones within the lumen. The cystic duct was not dilated. The patient had had an ERCP prior to the surgery, it was noted as per Dr. Michaels. TECHNIQUE: The patient was given a general anesthetic. An ERCP was performed. She was then positioned supine and the area was prepped and draped in the usual sterile fashion. The infraumbilical incision was made, and the skin and subcutaneous tissue were anesthetized with 0.5% Marcaine. Skin incision was made and was carried down through the subcutaneous tissue to the fascia, which was grasped with 2 Tevin clamps and incised between. The peritoneum was then identified, incised, and an introducer was placed bluntly. The abdomen was then insufflated to a pressure of 15 mmHg with carbon dioxide. The upper midline, midclavicular and anterior axillary introducers were placed under direct vision through small skin incisions after anesthetizing the skin, subcutaneous tissue and other layers. Traction was placed on the gallbladder, and the infundibulum and neck were easily identified. The peritoneum overlying the neck of the gallbladder was opened and peeled down towards the common bile duct and then the infundibulum was dissected away from the liver on the lateral side. Further dissection was carried over the anterior surface of the infundibulum into the triangle of Calot and the infundibulum was dissected away from the liver on that side as well. The gallbladder was peeled away from the liver on that side, which exposed the cystic artery in the triangle of Calot. This was isolated, clamped twice proximally and once near the gallbladder and divided. That allowed for better mobility of the infundibulum and there were some additional connective tissue and lymphatics on the medial and then posterior side of the cystic duct, which were then able to be identified and peeled away isolating the cystic duct in 360 degrees and allowing for creation of an adequate window. Two clips were placed on the proximal cystic duct, one near the junction with the gallbladder and it was divided. The gallbladder was then peeled off the liver bed using electrocautery. There was one large vein that was encountered. It was isolated, clipped and divided. Completion of dissection of the gallbladder away from the liver was performed. The gallbladder was placed into an Endobag. The liver edge was elevated and the gallbladder bed of the liver was inspected and there was no bleeding. The clips that were previously placed were inspected and were intact. The gas was allowed to be removed using the filter suction device attached to one of the ports and was also removed with the suction device. The gallbladder was then brought out through the upper midline incision inside the bag where I had to open the gallbladder and extract some of the bile and stones in order to accomplish that, but that was accomplished. The fascia of the umbilical and upper midline introducer sites was closed with interrupted 0 Vicryl and skin of all the incisions was closed with 4-0 Monocryl in either an interrupted or a running subcuticular fashion. The skin was further anesthetized with 0.5% Marcaine. The skin was cleansed, dried, benzoin placed, Steri-Strips applied. Estimated blood loss was 5 mL. Sponge, needle and instrument counts were correct prior to closure. The patient tolerated the surgical procedure without complication and was transferred to recovery. I attest to the content of the Intraoperative Record and any orders documented therein. Any exceptions are noted below. MATILDAD
[2019-08-13] MEDS: NSS + 20MEQ KCL 20 MEQ/1,000 ML BAG IV SCH (21:00)
[2019-08-13] MEDS: PIPERACILLIN/TAZOBACTAM 3.375 GM in DEXTROSE 5% 100 ML IV SCH (21:37)
[2019-08-13] MEDS: OXYCODONE/ACETAMINOPHEN 5mg/325mg TAB PO PRN (21:39)
[2019-08-14] MEDS ORDERED: CIPROFLOXACIN 500 MG TAB PO SCH
[2019-08-14] MEDS: OXYCODONE/ACETAMINOPHEN 5mg/325mg TAB PO PRN ×2 (05:04→11:38)
[2019-08-14] MEDS: NSS + 20MEQ KCL 20 MEQ/1,000 ML BAG IV SCH ×2 (05:05→12:49)
[2019-08-14] MEDS: PIPERACILLIN/TAZOBACTAM 3.375 GM in DEXTROSE 5% 100 ML IV SCH ×2 (05:27→13:39)
[2019-08-14] MEDS ORDERED: INFLUENZA ADMINISTRATION CHARGE ONE (08:00)
[2019-08-14] MEDS ORDERED: INFLUENZA VIRUS QUAD VACCINE 0.5 ML SYR IM ONE (08:00)
[2019-08-14 08:02] LABS: Hematocrit (blood only) 34.5 % (37-47); Hemoglobin 11.4 g/dL (12.0-16.0); Immature Granulocytes # (auto) 0.06 K/uL (0.00-0.02); Immature Granulocytes % (auto) 0.5 %; Lymphocytes # (auto) 1.33 K/uL (1.2-3.4); Lymphocytes % (auto) 11.5 %; Mean Corpuscular Hemoglobin 27.3 pg (25-34); Mean Corpuscular Volume 82.7 fL (80-100); Mean Platelet Volume 11.1 fL (7.4-10.4); Monocytes # (auto) 0.28 K/uL (0.11-0.59); Monocytes % (auto) 2.4 %; Neutrophils # (auto) 9.85 K/uL (1.4-6.5); Neutrophils % (auto) 85.6 %; Platelet Count 340 K/uL (130-400); RDW Coefficient of Variation 15.2 % (11.5-14.5); RDW Standard Deviation 45.9 fL (36.4-46.3); Red Blood Count 4.17 M/uL (4.2-5.4); White Blood Count 11.52 K/uL (4.8-10.8)
[2019-08-14 08:15] LABS: Albumin Globulin Ratio 0.6 (0.9-2); Albumin Level 2.7 gm/dl (3.4-5.0); BUN Creatinine Ratio 9.5 (10-20); Bilirubin,Total 12.3 mg/dl (0.2-1); Calcium 8.8 mg/dl (8.5-10.1); Creatinine Clr Calc Pharmacy 156.2 ml/min; Est GFR (African American) 144.9; Globulin 4.3 gm/dl (2.5-4.0)
--- NOTE | 2019-08-14 12:00 | Surgery Progress Note ---
Date of Service August 14, 2019 Assessment & Plan (1) Gallstones: Postoperative day #1, status post laparoscopic appendectomy following ERCP Tolerating diet Doing well from surgical standpoint Bilirubin noted to have elevated above 12, await GI input Continue ambulation Would not discharge today since bilirubin elevated Subjective Having some incisional pain only Denies nausea Tolerated clear liquids Physical Exam Physical Exam: Skin still appears icteric as does her sclera Gastrointestinal (Abdomen): Inspection/Auscultation: normal bowel sounds; abdomen not distended Percussion/Palpation: + abdomen tender (Mild incisional only) and abdomen soft Results & Data Vital Signs (Past 12 Hours) Vital Signs Temp Pulse Resp BP Pulse Ox 08/14/19 07:37 36.4 C L 72 16 122/76 98 Laboratory Results 08/14/19 08/14/19 08/13/19 Range/Units 07:34 07:34 14:14 WBC 11.52 H (4.8-10.8) K/uL RBC 4.17 L (4.2-5.4) M/uL Hgb 11.4 L (12.0-16.0) g/dL Hct 34.5 L (37-47) % MCV 82.7 (80-100) fL MCH 27.3 (25-34) pg MCHC 33.0 (32-36) g/dL RDW Std Deviation 45.9 (36.4-46.3) fL RDW Coeff of Maico 15.2 H (11.5-14.5) % Plt Count 340 (130-400) K/uL MPV 11.1 H (7.4-10.4) fL Immature Gran % (Auto) 0.5 % Neut % (Auto) 85.6 % Lymph % (Auto) 11.5 % Dunn % (Auto) 2.4 % Eos % (Auto) 0.0 % Baso % (Auto) 0.0 % Immature Gran # (Auto) 0.06 H (0.00-0.02) K/uL Neut # (Auto) 9.85 H (1.4-6.5) K/uL Lymph # (Auto) 1.33 (1.2-3.4) K/uL Dunn # (Auto) 0.28 (0.11-0.59) K/uL Eos # (Auto) 0.00 (0-0.5) K/uL Baso # (Auto) 0.00 (0-0.2) K/uL PT Cancelled INR Cancelled APTT Cancelled PTT Ratio Cancelled Sodium 137 (136-145) mmol/L Potassium 4.0 D (3.5-5.1) mmol/L Chloride 109 H (98-107) mmol/L Carbon Dioxide 22 (21-32) mmol/L Anion Gap 6.0 (3-11) BUN 7 (7-18) mg/dl Creatinine 0.68 (0.6-1.2) mg/dl Est Cr Clr Drug Dosing 156.2 ml/min Est GFR ( Amer) 144.9 Est GFR (Non-Af Amer) 125.0 BUN/Creatinine Ratio 9.5 L (10-20) Glucose 127 H (70-99) mg/dl Calcium 8.8 (8.5-10.1) mg/dl Total Bilirubin 12.3 H (0.2-1) mg/dl AST 30 (15-37) U/L ALT 68 (12-78) U/L Alkaline Phosphatase 274 H (45-117) U/L Total Protein 7.0 (6.4-8.2) gm/dl Albumin 2.7 L (3.4-5.0) gm/dl Globulin 4.3 H (2.5-4.0) gm/dl Albumin/Globulin Ratio 0.6 L (0.9-2) Lipase (73-393) U/L Urine Color Urine Appearance (Clear) Urine pH (4.5-7.5) Ur Specific [place] (1.000-1.030) Urine Protein (Negative) Urine Glucose (UA) (Negative) Urine Ketones (Negative) Urine Blood (Negative) Urine Nitrite (Negative) Urine Bilirubin (Negative) Urine Urobilinogen (Negative) Ur Leukocyte Esterase (Negative) Urine WBC (Auto) (0-5) /hpf Urine RBC (Auto) (0-4) /hpf U Hyaline Cast (Auto) (0-5) /lpf U Epithel Cells (Auto) (0-5) /lpf Urine Bacteria (Auto) (Negative) POC Ur Test (NEG) 08/13/19 08/13/19 08/13/19 Range/Units 12:38 12:38 11:10 WBC (4.8-10.8) K/uL RBC (4.2-5.4) M/uL Hgb (12.0-16.0) g/dL Hct (37-47) % MCV (80-100) fL MCH (25-34) pg MCHC (32-36) g/dL RDW Std Deviation (36.4-46.3) fL RDW Coeff of Maico (11.5-14.5) % Plt Count (130-400) K/uL MPV (7.4-10.4) fL Immature Gran % (Auto) % Neut % (Auto) % Lymph % (Auto) % Dunn % (Auto) % Eos % (Auto) % Baso % (Auto) % Immature Gran # (Auto) (0.00-0.02) K/uL Neut # (Auto) (1.4-6.5) K/uL Lymph # (Auto) (1.2-3.4) K/uL Dunn # (Auto) (0.11-0.59) K/uL Eos # (Auto) (0-0.5) K/uL Baso # (Auto) (0-0.2) K/uL PT INR APTT PTT Ratio Sodium 138 (136-145) mmol/L Potassium 3.4 L (3.5-5.1) mmol/L Chloride 106 (98-107) mmol/L Carbon Dioxide 25 (21-32) mmol/L Anion Gap 7.0 (3-11) BUN 11 (7-18) mg/dl Creatinine 0.77 (0.6-1.2) mg/dl Est Cr Clr Drug Dosing 135.6 ml/min Est GFR ( Amer) 127.9 Est GFR (Non-Af Amer) 110.4 BUN/Creatinine Ratio 14.7 (10-20) Glucose 102 H (70-99) mg/dl Calcium 9.2 (8.5-10.1) mg/dl Total Bilirubin 11.4 H (0.2-1) mg/dl AST 28 (15-37) U/L ALT 76 (12-78) U/L Alkaline Phosphatase 324 H (45-117) U/L Total Protein 7.8 (6.4-8.2) gm/dl Albumin 3.2 L (3.4-5.0) gm/dl Globulin 4.6 H (2.5-4.0) gm/dl Albumin/Globulin Ratio 0.7 L (0.9-2) Lipase 117 (73-393) U/L Urine Color Dark Yellow Urine Appearance Clear (Clear) Urine pH 6.5 (4.5-7.5) Ur Specific [place] 1.025 (1.000-1.030) Urine Protein Negative (Negative) Urine Glucose (UA) Negative (Negative) Urine Ketones Negative (Negative) Urine Blood Negative (Negative) Urine Nitrite Positive A (Negative) Urine Bilirubin 3+ H (Negative) Urine Urobilinogen Negative (Negative) Ur Leukocyte Esterase 1+ H (Negative) Urine WBC (Auto) 5-10 H (0-5) /hpf Urine RBC (Auto) 5-10 H (0-4) /hpf U Hyaline Cast (Auto) 1-5 (0-5) /lpf U Epithel Cells (Auto) 20-30 H (0-5) /lpf Urine Bacteria (Auto) 1+ H (Negative) POC Ur Test NEG (NEG)
[2019-08-14] MEDS ORDERED: CHOLESTYRAMINE LIGHT 4 GM PKT PO SCH ×3 (13:00→20:15)
--- NOTE | 2019-08-14 13:00 | Gastroenterology Progress Note ---
Date of Service August 14, 2019 Assessment & Plan (1) Choledocholithiasis: (2) Hyperbilirubinemia: (3) Gallstones: (4) Pruritus: Day 1 s/p ERCP with sphincterotomy, stone removal and stent placement as well as lap zenon Slight elevation in bilirubin with worsening pruritus Will add Hydroxyzine 25 mg by mouth x 1 now and Daily as needed Will Add Questran 4 g PO BID in 8 oz glass of water Advance diet as tolerated I would expect for her symptoms to continue to improve with declining bilirubin. Admission and Anticipated Discharge Date Admission Date: August 13, 2019 Jessy Wells continues to complain of RUQ abdominal pain, though less than yesterday. Rates pain as 3/10 in intensity, radiating to her right side of chest. Denies alleviating or exacerbating factors. Also complaining of severe itching, "all over." She is tolerating PO intake. She denies any fevers, chills, nausea, vomiting, hematemesis, melena or hematochezia. She has no further complaints. Review of Systems Review of Systems: All systems reviewed & are unremarkable except as noted in HPI & below Physical Exam Constitutional: WD/WN, vitals as above Respiratory: normal respiratory effort, lungs clear to auscultation Cardiovascular: RRR, no murmur, no edema Gastrointestinal (Abdomen): Inspection/Auscultation: normal bowel sounds; abdomen not distended Percussion/Palpation: + abdomen tender and abdomen soft; no guarding and abdomen not rigid Skin: no rashes, warm and dry Psychiatric: A+Ox3, euthymic affect Results & Data Results & Data ([facility]) Vital Signs (Past 12 Hours) Vital Signs Temp Pulse Resp BP Pulse Ox 08/14/19 07:37 36.4 C L 72 16 122/76 98 PG Care Time/CCT Total # of Minutes Spent Total Time Spent with Patient: Total time spent is greater than 50% in coordination of care (as documented) at patient's floor/unit and/or counseling patient: Coding Level of Care Code 14148 Subseq Hosp Care Lvl 3 Diagnoses Choledocholithiasis K80.50 Hyperbilirubinemia E80.6 Gallstones K80.20 Pruritus L29.9
[2019-08-14] MEDS ORDERED: CIPROFLOXACIN 500 MG TAB PO STA (18:06)
[2019-08-14] MEDS ORDERED: CIPROFLOXACIN 500MG HOME PACK PO ONE (20:05)
[2019-08-14] MEDS ORDERED: OXYCODONE IR HOME PACK PO ONE (20:39)
--- NOTE | 2019-08-15 06:46 | Communication Note ---
Date of Service: August 15, 2019 Pt was discharged on August 14, 2019 but was unable to get the medications she was discharged with as the pharmacy was closed. As documentation was not available stating the duration of therapies she was being discharged with, we were unable to send duplicates overnight to her pharmacy with open hours today, Friday. She was discharged with home packs and advised that her discharging physician will call in/send in those prescriptions to the open pharmacy today.
--- NOTE | 2019-08-22 23:37 | Discharge Summary ---
Date of Service August 14, 2019 Admission HPI Per Admitting Provider 23yo female who presents with 8 months of intermittent epigastric post-prandial abdominal pain, 1 week of pruritis of her hands/feet, then the development of jaundice about 2 days ago. Over the last few days she has also had nausea. 1 episode of emesis about 1 week ago. Denies fevers, but has had some chills. Interestingly she says the intermittent abdominal pain has not bothered her in several days. Seen at [facility] on[facility] this am for these complaints and was sent for RUQ u/s at [facility] [place] which showed gallstones, 11mm CBD, and +castillo's sign. Following this RUQ u/s she was directed to the ER. She recently took 2 days of prednisone prescribed as an outpatient for her itching. She also had been taking zyrtec. QUIN screen - traveled from [place] to [place] on July 22. Has had NO fever, cough, congestion, sore throat, runny nose, dyspnea, or chest symptoms. Just chills over the last day associated with the nausea. O2 sats 100% in RA at presentation today. Principal Diagnosis choledocholithiasis Discharge Exam Constitutional: obese; no acute distress and no altered mental status Eyes: + scleral abnormality (icteric) and PERRL ENMT: Mouth: + oral mucosal abnormality (icterus ) Neck: trachea midline, no thyromegaly Respiratory: normal respiratory effort, lungs clear to auscultation Cardiovascular: Rate/Rhythm: regular rate and regular rhythm Heart Sounds: normal S1 and normal S2; no murmur Vessels: posterior tibial pulses present and dorsalis pedis pulses present; no JVD Extremities: no edema Gastrointestinal (Abdomen): Inspection/Auscultation: normal bowel sounds; abdomen not distended Percussion/Palpation: + abdomen tender (mild- RUQ) and abdomen soft; no guarding and no hepatosplenomegaly Musculoskeletal: no cyanosis or clubbing, extremities motor strength 5/5 Skin: + jaundice (from head to umbilicus ) Neurologic: deep tendon reflexes 2+ bilaterally and moves all extremities Psychiatric: A+Ox3, euthymic affect Lymphatic: no cervical lymphadenopathy Discharge Data Allergies Allergy/AdvReac Type Severity Reaction Status Date / Time Sulfa (Sulfonamide Allergy Mild Hives Verified 08/19/19 17:09 Antibiotics) Consultations 08/13/19 13:11 ED Decision to Admit Stat 08/13/19 13:53 Consult Gastroenterology Routine Consult General Surgery Routine Procedures Performed Operation Date: 08/13/19 07:00 Actual Procedures p Endoscopic Retrograde Cholangiopancreatogram,sphincterotomy, common bile stone removal (Not Applicable) - Chi craig Laparoscopic Cholecystectomy(Not Applicable) - Austin Granda MD Ordered Studies 08/13/19 16:00 [place] ERCP biliary ductal Routine Hospital Course (1) Common bile duct dilation: Day 1 s/p ERCP with sphincterotomy, stone removal and stent placement as well as lap zenon Slight elevation in bilirubin with worsening pruritus Will add Hydroxyzine 25 mg by mouth x 1 now and Daily as needed Will Add Questran 4 g PO BID in 8 oz glass of water Advance diet as tolerated I would expect for her symptoms to continue to improve with declining bilirubin. D/W specialists, ok to dischrge and will recheck LFT within the week. (2) Hyperbilirubinemia: 2nd to CBD obstruction - likely from gallstones. Pruritis etc is all 2nd to hyperbilirubinemia. (3) Gallstones: Has had biliary colic episodes for months. Now with likely choledocholithiasis; cannot rule out cholangitis; cannot rule out early cholecystitis given her RUQ abd pain on exam. General surgery has been consulted for possibility of lap zenon during this admission. (4) Acute hypokalemia: add KCL to IV fluids. (5) Anxiety: previously was on SSRI - no longer taking. address as outpatient. (6) DVT prophylaxis: ambulation. Total Time Total Time Spent Total Time Spent (In Minutes): 32 Total Time Includes: Examination of the Patient, Discharge Planning and Medication Reconciliation Discharge Plan Discharge Items Patient Disposition: Home - Self-Care Reason For Visit: CHOLEDOCHOLITHIASIS Discharge Diagnosis: choledocholithiasis Condition on Discharge: Good Activity: Resume your previous activity Non-emergency contact: Primary Care Provider Call non-emergency contact if: you have any medication questions Follow-up/Referrals: PCP,NO [Primary Care Provider] - Diet: Regular Addtl Attending Provider Instructions: No driving heavy machinery including cars while taking pain medication. You have been hospitalized for an acute medical problem. During your stay at [facility], we have made an effort to correct the problem that brought you to the hospital while keeping you as comfortable as possible. Medications (pain medicine and antibiotics) were used to bring your condition under control and your discharge instructions will include directions for any medications you should take after leaving the hospital. Please make sure you see your Primary Care Provider as part of your follow up plan. General Surgery and Gastroenterology will Followup with you as an outpatient. Coronavirus disease 2019 (COVID-19) is a virus that causes a respiratory illness. It is caused by a coronavirus called 2019 novel coronavirus (2019- nCoV). There are many types of coronavirus. Coronaviruses are a very common cause of bronchitis. They may sometimes cause lung infection(pneumonia). Symptoms can range from mild to severe respiratory illness. These viruses are also foundin some animals. COVID-19 was first found in people in [facility], in late 2018. In 2020, several cases of COVID-19 have been confirmed in the [place] Public health officials are working to find the source. How the virus spreads is not yet fully known. It may be spread through droplets of fluid that a person coughs or sneezes into the air. It may be spread if you touch a surface with virus on it, such as a handle or object, and then touch your mouth. What are the symptoms of COVID-19? Some people have no symptoms or mild symptoms. Symptoms may appear 2 to 14 days after contact with the virus. Symptoms can include: Fever Coughing Trouble breathing What are possible complications from COVID-19? In many cases, this virus can cause infection (pneumonia) in both lungs. In some cases, this can cause . How is COVID-19 diagnosed? Your healthcare provider will ask about your symptoms. He or she will also ask about your recent travel and contact with sick people. Testing for the virus is only done through the CDC. If yourhealthcare provider thinks you may have COVID- 19, he or she will work with your local health department and the CDC on testing. Follow all instructions from your healthcare provider. COVID-19 is diagnosed by: Nasal and throat swab. A cotton-tipped swab is wiped inside your nose or throat. This is done to check for viruses in your nasal mucus. Sputum culture. A small sample of mucus coughed from your lungs (sputum) is collected if you have a cough. It is checked for the virus. How is COVID-19 treated? There is currently no medicine to treat the virus. Treatment is done to help your body while it fights the virus. This is known as supportive care. Tellez pportive care may include: Pain medicine. These include acetaminophen and ibuprofen. They are used to help ease pain and reduce fever. Bed rest. This helps your body fight the illness. For severe illness, you may need to stay in the hospital. Care during severe illness may include: IV (intravenous) fluids.These are given through a vein to help keep your body hydrated. Oxygen. Supplemental oxygen or ventilation with a breathing machine (ventilator) may be given. This is done to keep enough oxygen in your body. Are you at risk for COVID-19? If youve been to a place where people have been sick with this virus, you are at risk for infection. You are at risk if you: Recently traveled to an affected area Had contact with a sick person who recently traveled to this area Had contact with a person who was diagnosed with COVID-19 How can COVID-19 be prevented? There is no vaccine yet. The best prevention is to not have contact with the virus. The CDC advises that people should not travel to areas where there are COVID-19 outbreaks right now for any reason that is not urgent. To help prevent spreading the infection, wash your hands often, or use an alcohol-basedhand russian rubber. If you are in an area with COVID-19: Wash your hands often. Or use an alcohol-based hand russian rubber often. Only touch your eyes, nose, or mouth with clean hands. Dont have contact with people who are sick. Follow local instructions about being in public. For example, you may be told to not use public transport for a period of time. Stay away from markets that have live or animals. Wash your hands after touching any animals. Don't touch animals that may be sick. Dont share eating or drinking tools with sick people. Dont kiss someone who is sick. Clean surfaces often with disinfectant. If you were in an area with COVID-19 in the last 14 days: Call your healthcare provider. He or she can talk with local health staff to see what action may be needed. Follow all instructions from your provider. Take your temperature every morning and evening for at least 14 days. This is to check for fever. Keep a record of the readings. Keep watch for symptoms of the virus. Tell your provider right away if you have symptoms. If you were in an area with COVID-19 and have a fever or other symptoms: Dont panic. Keep in mind that other illnesses can cause similar symptoms. Stay away from work, school, and public places. Limit physical contact with family members. Don't kiss anyone or share eating or drinking utensils. Clean surfaces you touch with disinfectant. This is to help prevent the virus from spreading. Call your healthcare provider. Explain that you have been exposed to COVID-19 and have symptoms. Do this before going to any hospital. Wait for instructions. Keep in mind that healthcare staff may wear protective equipment such as masks, gowns, gloves, and eye protection. You may be put in a separate room. This is to prevent the possible virus from spreading. Tell the healthcare staff about recent travel. This includes local travel on public transport. Staff may need to find other people you have been in contact with. Follow all instructions the healthcare staff give you. If you have been diagnosed with COVID-19 Follow all instructions from your healthcare provider. Dont leave your home, except to get medical care. Call your healthcare providers office before going. They can prepare and give you instructions. This will help prevent the virus from spreading. Dont go to work, school, or public areas. Dont use public transport or taxis. Stay away from other people in your home. Have them wear face masks around yo u. Dont share household items or food. Wear a face mask if you can. This includes at home or in a medical facility. Cover your face with a tissue when you cough or sneeze. Throw the tissue away. Wash your hands. Wash your hands often. Caregivers should: Follow all instructions from healthcare staff. Wear a face mask and protective clothing as advised. Wash hands often. Keep track of the sick persons symptoms. Clean surfaces, fabrics, and laundry thoroughly. Keep other people away from the sick person. When to call your healthcare provider Call your healthcare provider: If youve recently traveled and have symptoms If you have been diagnosed with COVID-19 and your symptoms are worse To learn more To find out more about COVID-19, visit the CDC website at www.cdc.gov/coronavirus/2019-ncov/index.html. [employer] [address] [place] [address]. All rights reserved. This information is not intended as a substitute for professional medical care. Always follow your healthcare professional's instructions. This information has been adapted from [employer] Pending Studies at Discharge: No Stand-Alone Forms: [facility], Smoking Cessation Medications and DC Order Prescriptions: New Cholestyramine Light 4 gram powder in packet 4 gm PO BID Qty: 60 RF: 0 Continued L norgest/e.estradiol-e.estrad [Daysee] 0.15 mg-30 mcg (84)/10 mcg (7) Tablets,Dose Pack,3 Month 1 tab PO DAILY RF: 0 No Action acetaminophen [Tylenol Arthritis Pain] 650 mg tablet extended release 650 mg PO Q8H PRN (Reason: Fever Or Pain) RF: 0 hydroxyzine HCl 25 mg tablet 25 mg PO Q8H PRN (Reason: Itching) RF: 0 ciprofloxacin HCl [Cipro] 500 mg tablet 500 mg PO BID 7 Days Qty: 14 RF: 0 metronidazole 500 mg tablet 500 mg PO TID 7 Days Qty: 21 RF: 0 famotidine 20 mg tablet 20 mg PO DAILY PRN (Reason: heartburn) Qty: 14 RF: 0 Discharge Orders: Discharge Order (Routine); Ordered 08/14/19 Ordered By: Chemo Wadsworth/Other Patient Handouts: Discharge Instructions for Gallstones, Ciprofloxacin tablets, Cholestyramine powder for oral suspension, Total Bilirubin Blood Admission Data Admit Date/Time: 08/13/19 13:53 Attending Provider: Chemo Vo Admit Provider: Luis Fernandez Primary Care Provider: PCP,NO Other Providers: Luis Fernandez ; Chi Michaels ; Austin Granda Other Interventions: Discharge Summary Assessment (RN) Last Done: 08/14/19 18:51 DC Date/Time DO NOT enter until pt leaves facility: 08/14/19 20:50 Coding Level of Care Code D/C Day Management >30 mins Diagnoses Common bile duct dilation K83.8 Hyperbilirubinemia E80.6 Gallstones K80.20 Acute hypokalemia E87.6 Anxiety F41.9 DVT prophylaxis Z29.9
== END 2019-08-14 20:50 | disposition home or self-care (01) | DRG 417 ==
LOC: ED 10:47 → 3E 13:53 → SUATTDRO 13:53 → 3E 14:30

== ENCOUNTER 2019-08-19 16:31 | Inpatient (IN) ==
[2019-08-19] MEDS ORDERED: SODIUM CHLORIDE 0.9% 1000ML 1,000 ML IV ONE (16:39)
[2019-08-19 17:12] LABS: Basophils # (auto) 0.05 K/uL (0-0.2); Basophils % (auto) 0.4 %; Eosinophils % (auto) 2.2 %; Hematocrit (blood only) 35.5 % (37-47); Immature Granulocytes # (auto) 0.24 K/uL (0.00-0.02); Immature Granulocytes % (auto) 1.7 %; Lymphocytes # (auto) 2.79 K/uL (1.2-3.4); Mean Corpuscular Hemoglobin 28.5 pg (25-34); Mean Corpuscular Hgb Conc 33.8 g/dL (32-36); Mean Corpuscular Volume 84.3 fL (80-100); Mean Platelet Volume 10.6 fL (7.4-10.4); Monocytes # (auto) 0.74 K/uL (0.11-0.59); Monocytes % (auto) 5.3 %; Neutrophils # (auto) 9.83 K/uL (1.4-6.5); Neutrophils % (auto) 70.4 %; Platelet Count 419 K/uL (130-400); RDW Coefficient of Variation 15.7 % (11.5-14.5); RDW Standard Deviation 48.2 fL (36.4-46.3); Red Blood Count 4.21 M/uL (4.2-5.4); White Blood Count 13.95 K/uL (4.8-10.8)
--- NOTE | 2019-08-19 17:24 | Emergency Department Note ---
History of Present Illness General Chief complaint: GI Assessment Stated complaint: GALLBLADDER REMOVED - LEVELS RISING, JAUNDICE Time Seen by Provider: 08/19/19 16:38 History of Present Illness Provider complaint: Jaundice/abdominal pain Onset (ago): day(s) 4 23-year-old female presents the emergency department for abdominal pain and jaundice. She states that she recently had her gallbladder removed on Friday and had a stent placed in her common bile duct by Dr. Granda. This was done for gallstones intercom bile duct as well as in her gallbladder. She states this is being discharged she feels like she is becoming more nauseous, increased nausea, and has had vomiting. No hematemesis or coffee-ground emesis. She also reports abdominal pain is located right upper quadrant. No fevers. No chest pain or difficulty breathing. Home Medications Home Medications Medication Instructions Recorded Confirmed Type L norgest/e.estradiol-e.estrad 1 tab PO DAILY 08/13/19 08/19/19 History [Daysee] cholestyramine-aspartame 4 gm PO BID #60 ea 08/15/19 08/19/19 Rx [Cholestyramine Light] ciprofloxacin HCl [Cipro] 500 mg PO BID #18 tab 08/15/19 08/19/19 Rx acetaminophen [Tylenol Arthritis 650 mg PO Q8H PRN 08/19/19 08/19/19 History Pain] hydroxyzine HCl 25 mg PO Q8H PRN 08/19/19 08/19/19 History oxycodone 5 mg PO Q8H PRN 08/19/19 08/19/19 History Allergies Allergy/AdvReac Type Severity Reaction Status Date / Time Sulfa (Sulfonamide Allergy Mild Hives Verified 08/19/19 17:09 Antibiotics) Past Med/Surg History Medical History Acute hypokalemia (Acute) Anxiety Choledocholithiasis (Acute) Common bile duct dilation Gallstones Hyperbilirubinemia (Acute) No pertinent family history Pilonidal cyst Surgical History History of colonoscopy (Acute) S/P laparoscopic cholecystectomy Family History Father Colorectal cancer Grandmother Gallstones Social History (Updated 08/13/19 @ 16:24 by Luis Fernandez) Preferred Language: Swazi Communication Ability: Effective Front Worker Required: No Beliefs That Will Affect Care: None marital status: Single Current Living Situation: Significant Other current occupational status: student other: lives in [place], [place]; attends [employer]; boyfriend in [place] Feels Safe at Home: Yes Smoking Status: Never smoker Hx Alcohol Use: Yes Alcohol type: beer and hard liquor Alcohol Intake Frequency: Weekly Alcohol Intake Frequency Comment: 3-4x's each week, several drinks each time Hx Substance Use: No Review of Systems A total of 10 systems reviewed and were otherwise negative Physical Exam Vital Signs Vital Signs - 24 hr 08/19/19 16:33 08/19/19 17:05 08/19/19 18:00 Temperature 36.5 C Temperature Source Oral Pulse Rate 125 H Pulse Rate [Apical] 79 78 Respiratory Rate 18 18 18 Respiratory Effort / Characteristics Non-Labored Respiratory Depth Normal Blood Pressure 137/89 Blood Pressure [Left Arm] 124/75 Blood Pressure Mean 105 Blood Pressure Mean [Left Arm] 91 Pulse Oximetry 99 97 99 Oxygen Delivery Method Room Air Room Air Room Air Sepsis Recent Fever Within 48 Hours No Sepsis Action Taken by Nursing No Action Required 08/19/19 18:57 Temperature Temperature Source Pulse Rate Pulse Rate [Apical] 77 Respiratory Rate 18 Respiratory Effort / Characteristics Respiratory Depth Blood Pressure Blood Pressure [Left Arm] 116/77 Blood Pressure Mean Blood Pressure Mean [Left Arm] 90 Pulse Oximetry 99 Oxygen Delivery Method Sepsis Recent Fever Within 48 Hours Sepsis Action Taken by Nursing Physical Exam GENERAL: She is oriented to person, place, and time. She appears well-developed and well-nourished. She does not appear distressed. HENT: Exam performed. -Head: Normocephalic and atraumatic. -Right Ear: External ear normal. No mastoid tenderness. -Left Ear: External ear normal. No mastoid tenderness. -Mouth/Throat: The oropharynx is clear and moist. No trismus in the jaw. No dental abscesses or uvula swelling. No oropharyngeal exudate or tonsillar abscesses. EYES: Conjunctivae and EOM are normal. Pupils are equal, round, and reactive to light. Right eye exhibits no discharge. Left eye exhibits no discharge. scleral icterus present. NECK: Normal range of motion. Neck supple. No JVD present. No spinous process tenderness present. No carotid bruit present. No rigidity. No tracheal deviation and normal range of motion present. No Brudzinski's sign and no Kernig's sign noted. CV: Normal rate, regular rhythm, normal heart sounds and intact distal pulses. There is no peripheral edema. Palpable radial pulses bue. PULM/CHEST: Effort normal and breath sounds normal. No respiratory distress. No stridor. She has no wheezes. She has no rales. -Chest Wall: She exhibits no tenderness. ABD: The abdomen is soft. Bowel sounds are normal. She has no distension. No mass is present. There is no tenderness. There is no rebound, no guarding, no Rosado's sign and no tenderness at McBurney's point. Rovsig negative. Surgical scars appear clean with no surrounding discharge or bleeding. MUSC/SKEL: Normal range of motion. There is no peripheral edema, tenderness or deformity. LYMPH: No cervical adenopathy. NEURO: She is alert and oriented to person, place, and time. She has normal strength. No cranial nerve deficit or sensory deficit. Coordination and gait nor mal. GCS eye subscore is 4. GCS verbal subscore is 5. GCS motor subscore is 6. Cerebellar tests wnl. SKIN: Skin is warm and dry. She is not diaphoretic. Jaundiced. PSYCH: She has a normal mood and affect. Behavior is normal. Judgment and thought content normal. Course Course 170: The patient was evaluated in room C3. A complete history and physical exam was performed. EMR reviewed. Patient had a cholecystectomy done on August [address] Granda as well as an ERCP with a common bile duct stent placement done on the same day by Dr. Michaels. 182: No signs stable. Labs show leukocytosis of 13.95. Bilirubin level is 10.5 with a direct bilirubin of 8.1, alkaline phosphatase 291. CT of the abdomen shows no acute interval abdominal findings with a cholecystectomy and placement of biliary enteric stent. No abscess. I did discuss the case with Dr. Michaels gastroenterology who states that the patient might have a developing cholangitis and he states that he will try to send the patient to the OR today to replace her biliary stent. He recommends giving the patient IV antibiotics Zosyn. [facility] hospitalist team was notified about the admission. 1857: Discussed with Dr. Fernandez who accepts admission. Administered Medications Piperacillin Sod/Tazobactam Sod (Zosyn) 4.5 gm in 120 mls @ 30 mls/hr IV NOW ONE Stop: 08/19/19 22:21 Last Admin: 08/19/19 19:08 Dose: 30 mls/hr Documented by: [id number] Ioversol (Optiray 320 100ml) 94 ml IV ONCE PRN PRN Reason: Interaction Checking Stop: 08/23/19 17:35 Last Admin: 08/19/19 17:37 Dose: 94 ml Documented by: [id number] Discontinued Medications Sodium Chloride (Nss 1000ml) 1,000 mls @ 999 mls/hr IV .Q1H1M ONE Stop: 08/19/19 17:39 Last Infusion: 08/19/19 18:22 Dose: 0 mls/hr Documented by: [id number] Admin: 08/19/19 17:03 Dose: 999 mls/hr Documented by: [id number] Medical Decision Making Laboratory Data Result diagrams: 08/19/19 16:59 08/19/19 16:59 Lab Results 08/19/19 08/19/19 Range/Units 16:59 16:59 WBC 13.95 H (4.8-10.8) K/uL RBC 4.21 (4.2-5.4) M/uL Hgb 12.0 (12.0-16.0) g/dL Hct 35.5 L (37-47) % MCV 84.3 (80-100) fL MCH 28.5 (25-34) pg MCHC 33.8 (32-36) g/dL RDW Std Deviation 48.2 H (36.4-46.3) fL RDW Coeff of Maico 15.7 H (11.5-14.5) % Plt Count 419 H (130-400) K/uL MPV 10.6 H (7.4-10.4) fL Immature Gran % (Auto) 1.7 % Neut % (Auto) 70.4 % Lymph % (Auto) 20.0 % [place] % (Auto) 5.3 % Eos % (Auto) 2.2 % Baso % (Auto) 0.4 % Immature Gran # (Auto) 0.24 H (0.00-0.02) K/uL Neut # (Auto) 9.83 H (1.4-6.5) K/uL Lymph # (Auto) 2.79 (1.2-3.4) K/uL [place] # (Auto) 0.74 H (0.11-0.59) K/uL Eos # (Auto) 0.30 (0-0.5) K/uL Baso # (Auto) 0.05 (0-0.2) K/uL Sodium 136 (136-145) mmol/L Potassium 4.0 (3.5-5.1) mmol/L Chloride 106 (98-107) mmol/L Carbon Dioxide 25 (21-32) mmol/L Anion Gap 5.0 (3-11) BUN 11 (7-18) mg/dl Creatinine 0.74 (0.6-1.2) mg/dl Est Cr Clr Drug Dosing 140.9 ml/min Est GFR ( Amer) 134.2 Est GFR (Non-Af Amer) 115.8 BUN/Creatinine Ratio 15.0 (10-20) Glucose 88 (70-99) mg/dl Calcium 9.1 (8.5-10.1) mg/dl Total Bilirubin 10.5 H (0.2-1) mg/dl Direct Bilirubin 8.1 H (0-0.2) mg/dl AST 34 (15-37) U/L ALT 63 (12-78) U/L Alkaline Phosphatase 291 H (45-117) U/L Total Protein 7.8 (6.4-8.2) gm/dl Albumin 2.9 L (3.4-5.0) gm/dl Lipase 114 (73-393) U/L Imaging Data Radiologist's Impression: CT abd pelvis IV con only CLINICAL HISTORY: Abdominal pain status post cholecystectomy. COMPARISON STUDY: Abdominal ultrasound dated 08/13/2019, ERCP dated 08/13/2019 TECHNIQUE: The patient was scanned in a dynamic helical fashion during intravenous administration of 94 cc of Optiray 320. A dose lowering technique was utilized adhering to the principles of ALARA. CT DOSE: 716.55 mGy.cm FINDINGS: Lower chest: The heart is normal in size and configuration, without pericardial effusion. The lung bases and pleural spaces are clear. Liver: No focal hepatic masses are visualized. The hepatic and portal veins appear patent. There is trace pneumobilia. There is an indwelling biliary enteric stent. Gallbladder: Surgically absent Spleen: Normal in size and attenuation. Pancreas: Unremarkable. Adrenal glands: Unremarkable. Kidneys: There is symmetric renal cortical enhancement. The kidneys are normal in size without hydronephrosis. Bowel: There are no transition zones to indicate bowel obstruction. There is no evidence of acute diverticulitis. There are no findings to indicate acute appendicitis. Peritoneum: There is no intraperitoneal free air or abdominal ascites. Vasculature: The abdominal aorta is normal in course and caliber. There are less than right vena cavas. Adenopathy: None. Pelvic viscera: The bladder, and pelvic viscera are unremarkable. Skeletal structures: No destructive osseous lesions are seen. IMPRESSION: 1. No acute intra-abdominal or pelvic findings 2. No evidence of bowel obstruction. No evidence of free air 3. Interval cholecystectomy with placement of a biliary enteric stent. No evidence of postsurgical biloma or hematoma. ACT 112: Negative or not required by law. Electronically signed by: Edwin Warren M.D. 08/19/2019 5:53 PM Dictated: [id number]/19/[id number] Transcribed: [id number]/[id number] [facility] Narrative 1700: The patient was evaluated in room C3. A complete history and physical exam was performed. EMR reviewed. Patient had a cholecystectomy done on August [address] Granda as well as an ERCP with a common bile duct stent placement done on the same day by Dr. Michaels. 182: No signs stable. Labs show leukocytosis of 13.95. Bilirubin level is 10.5 with a direct bilirubin of 8.1, alkaline phosphatase 291. CT of the abdomen shows no acute interval abdominal findings with a cholecystectomy and placement of biliary enteric stent. No abscess. I did discuss the case with Dr. Michaels gastroenterology who states that the patient might have a developing cholangitis and he states that he will try to send the patient to the OR today to replace her biliary stent. He recommends giving the patient IV antibiotics Zosyn. [facility] hospitalist team was notified about the admission. 1856: Discussed with Dr. Fernandez who accepts admission. Impression & Plan Cholangitis Discharge Plan Visit Data *Final* Discharge Date/Time: 08/19/19 19:09 Chief Complaint: GI Assessment Stated Complaint: GALLBLADDER REMOVED - LEVELS RISING, JAUNDICE ED Provider: Rowan,Roni Discharge Problem: Cholangitis Patient Disposition: Admitted As Inpatient Discharge Instructions Interventions: ED Discharge Assessment Last Done: 08/19/19 19:09
[2019-08-19 17:30] LABS: Albumin Level 2.9 gm/dl (3.4-5.0); Bilirubin Direct 8.1 mg/dl (0-0.2); Calcium 9.1 mg/dl (8.5-10.1); Creatinine Clr Calc Pharmacy 140.9 ml/min; Est GFR (African American) 134.2; Est GFR (Non-African American) 115.8
[2019-08-19 17:33] LABS: Bilirubin,Total 10.5 mg/dl (0.2-1); Total Protein 7.8 gm/dl (6.4-8.2)
[2019-08-19] MEDS ORDERED: IOVERSOL 100ml IV PRN (17:36)
--- NOTE | 2019-08-19 17:55 | CT Scan Report ---
CT abd pelvis IV con only CLINICAL HISTORY: Abdominal pain status post cholecystectomy. COMPARISON STUDY: Abdominal ultrasound dated 08/13/2019, ERCP dated 08/13/2019 TECHNIQUE: The patient was scanned in a dynamic helical fashion during intravenous administration of 94 cc of Optiray 320. A dose lowering technique was utilized adhering to the principles of ALARA. CT DOSE: 716.55 mGy.cm FINDINGS: Lower chest: The heart is normal in size and configuration, without pericardial effusion. The lung ba ses and pleural spaces are clear. Liver: No focal hepatic masses are visualized. The hepatic and portal veins appear patent. There is t race pneumobilia. There is an indwelling biliary enteric stent. Gallbladder: Surgically absent Spleen: Normal in size and attenuation. Pancreas: Unremarkable. Adrenal glands: Unremarkable. Kidneys: There is symmetric renal cortical enhancement. The kidneys are normal in size without hydron ephrosis. Bowel: There are no transition zones to indicate bowel obstruction. There is no evidence of acute div erticulitis. There are no findings to indicate acute appendicitis. Peritoneum: There is no intraperitoneal free air or abdominal ascites. Vasculature: The abdominal aorta is normal in course and caliber. There are less than right vena cava s. Adenopathy: None. Pelvic viscera: The bladder, and pelvic viscera are unremarkable. Skeletal structures: No destructive osseous lesions are seen. IMPRESSION: 1. No acute intra-abdominal or pelvic findings 2. No evidence of bowel obstruction. No evidence of free air 3. Interval cholecystectomy with placement of a biliary enteric stent. No evidence of postsurgical bi lety or hematoma. ACT 112: Negative or not required by law. Electronically signed by: Edwin Warren M.D. 08/19/2019 5:53 PM
[2019-08-19] MEDS ORDERED: PIPERACILL/TAZOBAC CONSULT ACTIVE PRN (18:22)
[2019-08-19] MEDS ORDERED: PIPERACILLIN/TAZOBACTAM 4.5 GM/120 ML BAG IV ONE (18:22)
[2019-08-19] MEDS ORDERED: INDOMETHACIN 50 MG SUPP PR ONE ×2 (18:38→19:29)
[2019-08-19] MEDS ORDERED: fentaNYL citrate 100 MCG/2 ML VIAL ONE (18:52)
[2019-08-19] MEDS ORDERED: PROPOFOL IV EMULSION 10 MG/ML 20 ML VIAL IV ONE (18:52)
[2019-08-19] MEDS ORDERED: SUCCINYLCHOLINE CHLORIDE 20 MG/ML 10 ML VIAL ONE (18:52)
[2019-08-19] MEDS ORDERED: LIDOCAINE HCL 2% 2 ML VIAL/AMP(20MG/ML) INFIL ONE (18:52)
--- NOTE | 2019-08-19 19:16 | Anesthesiology Consultation ---
Date of Service August 19, 2019 Assessment & Plan (1) Encounter for pre-operative examination: Chart Review Chart Review: Acceptable Risk for Surgery Consults Requested none ASA [id number] Proposed Anesthesia Anesthesia Type: General Risk / Benefits Reviewed With: PT / POA / Parent / Guardian, Accepts Plan and Informed Consent Obtained History Surgery Operation Date: 08/19/19 18:35 Proposed Procedures p Endoscopic Retrograde Cholangiopancreato Evan Michaels Height/Weight Height: 5 ft 7 in Weight: 93.1 kg Allergies Allergy/AdvReac Type Severity Reaction Status Date / Time Sulfa (Sulfonamide Allergy Mild Hives Verified 08/19/19 17:09 Antibiotics) Medications Home Medications Medication Instructions Recorded Confirmed Last Taken L norgest/e.estradiol-e.estrad 1 tab PO DAILY 08/13/19 08/19/19 08/12/19 22:00 [Daysee] cholestyramine-aspartame 4 gm PO BID #60 ea 08/15/19 08/19/19 Unknown [Cholestyramine Light] ciprofloxacin HCl [Cipro] 500 mg PO BID #18 tab 08/15/19 08/19/19 Unknown acetaminophen [Tylenol Arthritis 650 mg PO Q8H PRN 08/19/19 08/19/19 Unknown Pain] hydroxyzine HCl 25 mg PO Q8H PRN 08/19/19 08/19/19 Unknown oxycodone 5 mg PO Q8H PRN 08/19/19 08/19/19 Unknown Active Medications Generic Name Dose Route Start Last Admin Trade Name Freq PRN Reason Stop Dose Admin Piperacillin Sod/Tazobactam Sod 4.5 gm in 120 mls @ 30 mls/hr 08/19/19 18:22 08/19/19 19:08 Zosyn IV 08/19/19 22:21 30 mls/hr NOW ONE Administration Ioversol 94 ml 08/19/19 17:36 08/19/19 17:37 Optiray 320 100ml IV 08/23/19 17:35 94 ml ONCE PRN Administration Interaction Checking NPO Date Last Intake of Solids: 08/19/19 Time Last Intake of Solids: 15:00 Past Medical History Medical History Acute hypokalemia (Acute) Anxiety Choledocholithiasis (Acute) Common bile duct dilation Gallstones Hyperbilirubinemia (Acute) No pertinent family history Pilonidal cyst Exercise / Class Metabolic Activity II 4-5 Yardwork/Stairs/Walk up hill Past Family History Family History Father Colorectal cancer Grandmother Gallstones Past Surgical History Surgical History History of colonoscopy (Acute) S/P laparoscopic cholecystectomy Past Anesthesia History No Hx of Anesthesia Complications and No Family Hx of Anesthesia Complications History of PONV No Hx of PONV and No Hx of Motion Sickness Social History Smoking Status: Never smoker Hx Alcohol Use: Yes Alcohol type: beer and hard liquor alcohol intake frequency: a few times a week Hx Substance Use: No Physical Exam Vital Signs Last Vital Signs Temp 97.7 F 08/19/19 16:33 Pulse 77 08/19/19 18:57 Resp 18 08/19/19 18:57 BP 116/77 08/19/19 18:57 Pulse Ox 99 08/19/19 18:57 ENMT Mouth: no dentition abnormality Thyromental Distance: > or= 3.5 Finger Breadths Mallampati Class: II Neck normal visual inspection Respiratory normal respiratory effort Auscultation: lungs clear to auscultation bilaterally Cardiovascular Rate/Rhythm: regular rate and regular rhythm Testing Laboratory Results 08/19/19 16:59 08/19/19 16:59
--- NOTE | 2019-08-19 19:24 | History & Physical Report ---
Date of Service August 19, 2019 Assessment & Plan (1) Cholangitis: Patient presenting with persistent jaundice and elevated white blood cell count with shaking type chills at home. I wonder if she may have an occluded biliary stent. We will therefore proceed with urgent biliary decompression and stent exchange. Should the patient not improve we would need to consider of alternate etiologies such as autoimmune liver disease or viral liver disease. I have discussed the risks and benefits of the procedure to include bleeding, infection, perforation, pancreatitis and need for follow-up studies History of Present Illness Chief Complaint: Itching and shaking chills Primary Care Provider: NO PCP Patient presented to the emergency room today for evaluation of persistent itching and shaking chills over the last few days. The patient presented to the hospital last week and underwent cholecystectomy and ERCP for choledocholithiasis. At the time of her ERCP biliary stent was placed. Over the weekend her bilirubin did not improve significantly. The patient was discharged as she was feeling well but notes that she became worse over the last few days. She describes having right upper quadrant discomfort and numerous episodes of shaking type chills over the past few days. Allergies Allergy/AdvReac Type Severity Reaction Status Date / Time Sulfa (Sulfonamide Allergy Mild Hives Verified 08/19/19 17:09 Antibiotics) Home Medications Home Medications Medication Instructions Recorded Confirmed Type L norgest/e.estradiol-e.estrad 1 tab PO DAILY 08/13/19 08/19/19 History [Daysee] cholestyramine-aspartame 4 gm PO BID #60 ea 08/15/19 08/19/19 Rx [Cholestyramine Light] ciprofloxacin HCl [Cipro] 500 mg PO BID #18 tab 08/15/19 08/19/19 Rx acetaminophen [Tylenol Arthritis 650 mg PO Q8H PRN 08/19/19 08/19/19 History Pain] hydroxyzine HCl 25 mg PO Q8H PRN 08/19/19 08/19/19 History oxycodone 5 mg PO Q8H PRN 08/19/19 08/19/19 History Past Med/Surg History Medical History Acute hypokalemia (Acute) Anxiety Choledocholithiasis (Acute) Common bile duct dilation Gallstones Hyperbilirubinemia (Acute) No pertinent family history Pilonidal cyst Surgical History History of colonoscopy (Acute) S/P laparoscopic cholecystectomy Family History Father Colorectal cancer Grandmother Gallstones Social History (Updated 08/13/19 @ 16:24 by Luis Fernandez) Preferred Language: Comoran Communication Ability: Effective Motion Picture Set Up Worker Required: No Beliefs That Will Affect Care: None marital status: Single Current Living Situation: Significant Other current occupational status: student other: lives in [place], [place]; attends [employer]; boyfriend in [place] Feels Safe at Home: Yes Smoking Status: Never smoker Hx Alcohol Use: Yes Alcohol type: beer and hard liquor Alcohol Intake Frequency: Weekly Alcohol Intake Frequency Comment: 3-4x's each week, several drinks each time Hx Substance Use: No Review of Systems + chills and + body aches; no fever no diplopia no foul smell no change in sputum no chest pain with activity + abdominal pain, + nausea and + vomiting; no bloating no urinary frequency no falls no hopelessness no polydipsia no coagulopathy Physical Exam Eyes: Scleral icterus noted Neck: trachea midline, no thyromegaly normal visual inspection Respiratory: normal respiratory effort Cardiovascular: Rate/Rhythm: regular rate Gastrointestinal (Abdomen): Inspection/Auscultation: abdomen normal to inspection Skin: Icterus noted/fundus Results & Data Vital Signs (Past 12 Hours) Vital Signs Temp Pulse Pulse Resp BP BP Pulse Ox 08/19/19 18:57 77 18 116/77 99 08/19/19 18:00 78 18 124/75 99 08/19/19 17:05 79 18 97 08/19/19 16:33 36.5 C 125 H 18 137/89 99 Laboratory Results Laboratory Results - last 24 hr 08/19/19 08/19/19 16:59 16:59 WBC 13.95 H RBC 4.21 Hgb 12.0 Hct 35.5 L MCV 84.3 MCH 28.5 MCHC 33.8 RDW Std Deviation 48.2 H RDW Coeff of Maico 15.7 H Plt Count 419 H MPV 10.6 H Immature Gran % (Auto) 1.7 Neut % (Auto) 70.4 Lymph % (Auto) 20.0 Clarke % (Auto) 5.3 Eos % (Auto) 2.2 Baso % (Auto) 0.4 Immature Gran # (Auto) 0.24 H Neut # (Auto) 9.83 H Lymph # (Auto) 2.79 Clarke # (Auto) 0.74 H Eos # (Auto) 0.30 Baso # (Auto) 0.05 Sodium 136 Potassium 4.0 Chloride 106 Carbon Dioxide 25 Anion Gap 5.0 BUN 11 Creatinine 0.74 Est Cr Clr Drug Dosing 140.9 Est GFR ( Amer) 134.2 Est GFR (Non-Af Amer) 115.8 BUN/Creatinine Ratio 15.0 Glucose 88 Calcium 9.1 Total Bilirubin 10.5 H Direct Bilirubin 8.1 H AST 34 ALT 63 Alkaline Phosphatase 291 H Total Protein 7.8 Albumin 2.9 L Lipase 114
[2019-08-19] MEDS ORDERED: ONDANSETRON INJ 2 MG/ML 2 ML VIAL ONE (20:04)
[2019-08-19] MEDS ORDERED: fentaNYL citrate 100 MCG/2 ML VIAL IV PRN (20:06)
[2019-08-19] MEDS ORDERED: ATROPINE SULFATE 0.1 MG/ML 10ML SYR IV PRN (20:06)
[2019-08-19] MEDS ORDERED: ONDANSETRON INJ 2 MG/ML 2 ML VIAL IV PRN ×2 (20:06→21:13)
[2019-08-19] MEDS ORDERED: ePHEDrine sulfate 50 MG/ML AMP IV PRN (20:06)
--- NOTE | 2019-08-19 20:06 | Post Operative Brief Note ---
Immediate Post Op Note v1 Date of Surgery August 19, 2019 Pre & Post Diagnosis Operation Date: 08/19/19 18:35 Pre-Op Diagnosis: Cholangitis Post-Op Diagnosis: Cholangitis I identified the patient and participated in the time-out.: Yes Procedure Operation Date: 08/19/19 18:35 Actual Procedures p Endoscopic Retrograde Cholangiopancreatography(Not Applicable) - Chi Michaels Surgeon Chi Michaels Mangle Tender none Estimated Blood Loss 0 Findings Consistent with Post-Op Diagnosis
--- NOTE | 2019-08-19 20:07 | Communication Note ---
Date of Service: August 19, 2019 The patient underwent urgent ERCP this evening for suspected cholangitis and biliary stent occlusion. We identified an occluded biliary stent. A small a mount of sludge was removed from the duct in addition to a small amount of pus. Therefore a new biliary stent was placed this evening. Recommendations May have clear liquids Avoid use of nonsteroidals if possible (recent sphincterotomy) continue with IV hydration overnight Continue with broad-spectrum antibiotics for total of 10 days Repeat labs in the morning If jaundice persists despite this intervention we may need to consider alternate causes of liver disease such as autoimmune hepatitis
--- NOTE | 2019-08-19 20:14 | GI REPORT ---
Patient Name: Priscilla Madden Procedure Date: 08/19/2019 7:40 PM Date of : 1995 Admit Type: Outpatient Age: 23 Gender: Female Attending MD: Chi Michaels DO Procedure: ERCP Providers: Chi Michaels DO Referring MD: Austin Granda MD, Susanne Hastings Md Indications: Abdominal pain of suspected biliary origin, Suspected ascending cholangitis, Jaundice Medicines: General Anesthesia Complications: No immediate complications. Estimated blood loss: Minimal. Estimated Blood Loss: Estimated blood loss was minimal. Procedure: Pre-Anesthesia Assessment: - Prior to the procedure, a History and Physical was performed, and patient medications, allergies and sensitivities were reviewed. The patient's tolerance of previous anesthesia was reviewed. - The risks and benefits of the procedure and the sedation options and risks were discussed with the patient. All questions were answered and informed consent was obtained. - Patient identification and proposed procedure were verified prior to the procedure by the physician, the nurse and the screw machine tender. The procedure was verified in the procedure room. - Pre-procedure physical examination revealed no contraindications to sedation. - ASA Grade Assessment: IIE - A patient with mild systemic disease. - After reviewing the risks and benefits, the patient was deemed in satisfactory condition to undergo the procedure. - The anesthesia plan was to use general anesthesia. - Immediately prior to administration of medications, the patient was re-assessed for adequacy to receive sedatives. - The heart rate, respiratory rate, oxygen saturations, blood pressure, adequacy of pulmonary ventilation, and response to care were monitored throughout the procedure. - The physical status of the patient was re-assessed after the procedure. After obtaining informed consent, the scope was passed under direct vision. Throughout the procedure, the patient's blood pressure, pulse, and oxygen saturations were monitored continuously. The Scope was introduced through the mouth, and advanced to the duodenum and used to inject contrast into the bile duct. The ERCP was accomplished without difficulty. The patient tolerated the procedure well. Findings: A food operations manager film of the abdomen was obtained. Surgical clips, consistent with a previous cholecystectomy, were seen in the area of the right upper quadrant of the abdomen. The esophagus was successfully intubated under direct vision without detailed examination of the pharynx, larynx, and associated structures, and upper GI tract, a small amount of food debris was noted in the gastric body. The upper GI tract was otherwise grossly normal. One biliary stent originating in the biliary tree was emerging from the major papilla. The stent was visibly occluded. A biliary sphincterotomy had been performed and notable for a healing ulcer (consistent with recent sphincterotomy). The sphincterotomy appeared open. One stent was removed from the biliary tree using a snare. The bile duct was deeply cannulated with the short-nosed traction sphincterotome and 0.035 in Acrobat 2 guidewire. Contrast was injected. I personally interpreted the bile duct images. Contrast extended to the entire biliary tree. The main bile duct was mildly dilated. The largest diameter was about 10 mm. The middle third of the main bile duct contained filling defect(s) thought to be sludge. The previously noted narrowing at the upper third of the CBD was no longer present. To discover objects, the biliary tree was swept several times with a 12 mm balloon and 15 mm balloon starting at the bifurcation. Sludge was swept from the duct. A small amount of pus was also swept from the duct. One 10 Fr by 8 cm biliary stent with a single external flap and a single internal flap was placed 8 cm into the common bile duct. Bile flowed through the stent. The stent was in good position. The endoscope was withdrawn from the patient. Indomethacin 100 mg was given via suppository to decrease the risk of post-ERCP pancreatitis (PEP). Impression: - One visibly occluded stent from the biliary tree was seen in the major papilla. - Prior biliary sphincterotomy appeared open. - The examination was suspicious for sludge. - The biliary tree was swept and sludge and pus were found. - One new biliary stent was placed into the common bile duct. - Indomethacin given to decrease risk of post-ERCP pancreatitis. Recommendation: - Return patient to [facility] for ongoing care. - Clear liquid diet today. - No aspirin, ibuprofen, naproxen, or other non-steroidal anti-inflammatory drugs for 1 week. - Use broad spectrum antibiotics for 10 days. - Return to endoscopist for stent removal at ERCP in 4 weeks. Chi Michaels D.O. Chi Michaels, 08/19/2019 8:14:10 PM This report has been signed electronically. Note Initiated On: 08/19/2019 7:40 PM Number of Addenda: 0 I attest to the content of the Intraoperative Record and orders documented therein, exceptions below {[id number]}
--- NOTE | 2019-08-19 20:19 | Fluoroscopy Report ---
[place] ERCP biliary ductal CLINICAL HISTORY: Abdominal pain status post cholecystectomy COMPARISON STUDY: CT scan dated 08/19/2019, ERCP dated 08/13/2019 FLUOROSCOPY TIME: 36 seconds. NUMBER OF FLUOROSCOPIC IMAGES: 7 FINDINGS: 7 fluoroscopic spot images from an ERCP are provided for interpretation. The common bile du ct was cannulated, and contrast was instilled. The duct was swept with balloon catheter. The final im age demonstrates a biliary enteric stent. IMPRESSION: Fluoroscopic spot images during ERCP, ductal sweep, and placement of a biliary enteric s tent. ACT 112: Negative or not required by law. Electronically signed by: Edwin Warren M.D. 08/19/2019 8:18 PM
--- NOTE | 2019-08-19 20:48 | History & Physical Report ---
Date of Service August 19, 2019 Assessment & Plan (1) Cholangitis: Priscilla is a 23 yo F with recent admission for choledocholithiasis, s/p biliary stent placement who was readmitted today for worsening abdominal pain, jaundice, nausea and shaking chills, concerning for developing cholangitis. - GI consulted by ED provider, patient taken immediately to OR - ERCP revealed occluded biliary stent, which was replaced - patient received appropriate pre-operative antibiotics - clear liquid diet, advance as tolerated - continue IV hydration overnight - zofran prn for nausea - morphine prn for pain - IV protonix for stress ulcer ppx - continue IV Zosyn while in hospital; patient will need total of 10 day broad spectrum antibiotic course (consider narrowing to oral cipro at discharge) - CBC, CMP, Mag, and Lipase ordered for AM Labs (2) Hyperbilirubinemia: - Total Bili 10.8, direct bili 8.5 - likely secondary to obstructive biliary process, anticipate resolution with stent replacement - repeat levels ordered for AM (3) Cholestatic jaundice: - likely result of the above obstructive biliary process - continue to monitor; if no improvement with stent replacement, consider further work-up (ie autoimmune hepatitis) Code Status: Full DVT ppx: SCDs as patient unlikely to be ambulatory in acute post-operative setting FEN/GI: maintenance fluids overnight; clear liquid diet Dispo: Med/Surg; anticipate discharge 08/19 History of Present Illness Primary Care Provider: NO PCP Priscilla is a 23 yo female who was recently admitted to [facility] on 08/13/19 with choledocholithiasis s/p intraoperative ERCP and biliary stent placement by Dr. Granda. She was discharged on 08/14/19 with a script for Ciprofloxacin, 500mg, BID, Cholestyramine and Oxycodone. In the days following her index discharge, she developed progressive abdominal pain, juandice, nausea, and shaking chills, which ultimately prompted her readmission. ED Course: Afebrile, HR 77, BP 116/77, 18, 99% on room air. WBC elevated to 13.9 with neutrophil predominance, up from 11.5 on 08/14/19. Total bilirubin 10.5, do wn from 12.3 on 08/04/19; directed bilirubin 8.1. Alk Phos 291, up from 274 on 08/14/19. Abdominopelvic CT scan showed no evidence of post-surgical biloma or hematoma. Emergency department provider consulted GI provider, who was concerned Priscilla may have an occluded biliary stent and developing cholangitis. She was immediately taken to the OR by Dr. Michaels for urgent biliary decompression and stent exchange. She was given a 1 liter bolus of normal saline and 4.5g of IV Zosyn prior to being taken to the OR. Allergies Allergy/AdvReac Type Severity Reaction Status Date / Time Sulfa (Sulfonamide Allergy Mild Hives Verified 08/19/19 17:09 Antibiotics) Home Medications Home Medications Medication Instructions Recorded Confirmed Type L norgest/e.estradiol-e.estrad 1 tab PO DAILY 08/13/19 08/19/19 History [Daysee] cholestyramine-aspartame 4 gm PO BID #60 ea 08/15/19 08/19/19 Rx [Cholestyramine Light] ciprofloxacin HCl [Cipro] 500 mg PO BID #18 tab 08/15/19 08/19/19 Rx acetaminophen [Tylenol Arthritis 650 mg PO Q8H PRN 08/19/19 08/19/19 History Pain] hydroxyzine HCl 25 mg PO Q8H PRN 08/19/19 08/19/19 History oxycodone 5 mg PO Q8H PRN 08/19/19 08/19/19 History Past Med/Surg History Medical History Acute hypokalemia (Acute) Anxiety Choledocholithiasis (Acute) Common bile duct dilation Gallstones Hyperbilirubinemia (Acute) No pertinent family history Pilonidal cyst Surgical History History of colonoscopy (Acute) S/P laparoscopic cholecystectomy Family History Father Colorectal cancer Grandmother Gallstones Social History (Updated 08/13/19 @ 16:24 by Luis Fernandez) Preferred Language: Bhutanese Communication Ability: Effective Hobbing Machine Operator Required: No Beliefs That Will Affect Care: None marital status: Single Current Living Situation: Spouse current occupational status: student Other Information That Helps Us Care for You: No other: lives in [place], [place]; attends [employer]; boyfriend in [place] Feels Safe at Home: Yes Safety Concerns: Feels Safe At This Time Smoking Status: Never smoker Do You Dip or Chew Tobacco: No ; Second Hand Exposure: No ; Tobacco Cessation Education Requested by Patient: No Hx Alcohol Use: Yes Alcohol type: beer, wine and hard liquor Alcohol Intake Frequency: Weekly Alcohol Intake Frequency Comment: 3-4x's each week, several drinks each time Hx Substance Use: No Review of Systems Gastrointestinal: + nausea; no abdominal pain and no vomiting Physical Exam Constitutional: WD/WN, vitals as above cooperative Eyes: + scleral abnormality (icterus) ENMT: external ear and nose normal, oropharynx normal Neck: normal visual inspection and trachea midline Respiratory: normal respiratory effort, lungs clear to auscultation Auscultation: no rales, no rhonchi and no wheezes Cardiovascular: RRR, no murmur, no edema Heart Sounds: normal S1 and normal S2 Gastrointestinal (Abdomen): Inspection/Auscultation: normal bowel sounds and + abdominal surgical incision (dry bandages covering laproscopic sites; no surrounding erythema or warmth); abdomen not distended Percussion/Palpation: + abdomen tender (right upper quadrant) and abdomen soft; no guarding Skin: + jaundice Psychiatric: A+Ox3, euthymic affect Results & Data Results & Data ([facility]) Vital Signs (Past 12 Hours) Vital Signs Temp Pulse Pulse Resp BP BP Pulse Ox 08/19/19 20:25 36.5 C 96 H 16 127/76 99 08/19/19 20:18 36 C L 106 H 16 128/77 95 08/19/19 18:57 77 18 116/77 99 08/19/19 18:00 78 18 124/75 99 08/19/19 17:05 79 18 97 08/19/19 16:33 36.5 C 125 H 18 137/89 99 Supervising Physician Co-Signing Physician Notes Attending addendum: I have physically seen this patient, have supervised the medical residents activities, and agree with the H&P unless as otherwise noted. Assessment and Plan: Biliary stent dysfunction/occlusion/hyperbilirubinemia/recent choledocholithiasis- Replaced this evening by Dr. Michaels. Follow serial laboratories. IV fluids. Empiric antibiotics with Zosyn IV. Zofran 4 mg IV every 6 hours as needed. Morphine sulfate 2 mg IV every 4 hours as needed severe pain. Clear liquid diet, advance as tolerated. Remainder of orders and notations as noted. Resident Activity Tracking Resident Involvement: Resident Care Provided Care Provided: Adult [facility]
--- NOTE | 2019-08-19 20:50 | Anesthesiology Progress Note ---
Date of Service August 19, 2019 Anesthesia Post Procedure Vital Signs Vital Signs: Temp Pulse Pulse Resp BP BP Pulse Ox 08/19/19 20:35 97.9 F 89 16 121/73 100 08/19/19 20:30 97.7 F 93 H 17 127/78 99 08/19/19 20:25 97.7 F 96 H 16 127/76 99 08/19/19 20:18 96.8 F L 106 H 16 128/77 95 08/19/19 18:57 77 18 116/77 99 08/19/19 18:00 78 18 124/75 99 08/19/19 17:05 79 18 97 08/19/19 16:33 97.7 F 125 H 18 137/89 99 Transfer of Care Handoff Completed per policy Notes Mental Status: alert / awake / arousable and participated in evaluation Patient Amnestic to Procedure: Yes Nausea / Vomiting: adequately controlled Pain: adequately controlled Airway Patency, RR, SpO2: stable & adequate BP & HR: stable & adequate Hydration State: stable & adequate Anesthetic Complications: no major complications apparent and Pt Satisfied with anesthetic care
[2019-08-19] MEDS ORDERED: MoRPHine SULFATE 4 MG/ML 1 ML CARP\\VIAL IM PRN (22:14)
[2019-08-19] MEDS ORDERED: MoRPHine SULFATE 4 MG/ML 1 ML CARP\\VIAL IV PRN (22:27)
[2019-08-19] MEDS: LACTATED RINGER'S 1,000 ML IV SCH (22:45)
[2019-08-19] MEDS: PANTOprazole 40 MG in SYRINGE 0 ML IV SCH (22:45)
[2019-08-19] MEDS ORDERED: ACETAMINOPHEN 325 MG TAB PO PRN (22:58)
[2019-08-20] MEDS: PIPERACILLIN/TAZOBACTAM 3.375 GM in DEXTROSE 5% 100 ML IV SCH ×3 (00:50→14:45)
--- NOTE | 2019-08-20 04:24 | Billing Data ---
Date of Service August 20, 2019 Coding Level of Care Code 56658 OBS Care - Level 3
[2019-08-20] MEDS: LACTATED RINGER'S 1,000 ML IV SCH (06:31)
[2019-08-20 07:21] LABS: Basophils # (auto) 0.03 K/uL (0-0.2); Basophils % (auto) 0.3 %; Eosinophils # (auto) 0.24 K/uL (0-0.5); Eosinophils % (auto) 2.3 %; Hematocrit (blood only) 30.7 % (37-47); Hemoglobin 10.2 g/dL (12.0-16.0); Immature Granulocytes # (auto) 0.14 K/uL (0.00-0.02); Immature Granulocytes % (auto) 1.3 %; Lymphocytes # (auto) 3.26 K/uL (1.2-3.4); Lymphocytes % (auto) 30.8 %; Mean Corpuscular Hemoglobin 27.9 pg (25-34); Mean Corpuscular Hgb Conc 33.2 g/dL (32-36); Mean Corpuscular Volume 84.1 fL (80-100); Mean Platelet Volume 10.3 fL (7.4-10.4); Monocytes # (auto) 0.62 K/uL (0.11-0.59); Monocytes % (auto) 5.9 %; Neutrophils # (auto) 6.28 K/uL (1.4-6.5); Neutrophils % (auto) 59.4 %; Platelet Count 347 K/uL (130-400); RDW Standard Deviation 48.7 fL (36.4-46.3); Red Blood Count 3.65 M/uL (4.2-5.4); White Blood Count 10.57 K/uL (4.8-10.8)
[2019-08-20 08:05] LABS: Alanine Aminotransferase 51 U/L (12-78); Albumin Globulin Ratio 0.6 (0.9-2); Albumin Level 2.3 gm/dl (3.4-5.0); Alkaline Phosphatase 227 U/L (45-117); Aspartate Aminotransferase 30 U/L (15-37); BUN Creatinine Ratio 12.1 (10-20); Bilirubin Direct 6.1 mg/dl (0-0.2); Bilirubin,Total 8.4 mg/dl (0.2-1); Blood Urea Nitrogen 7 mg/dl (7-18); Calcium 8.6 mg/dl (8.5-10.1); Carbon Dioxide 22 mmol/L (21-32); Chloride 110 mmol/L (98-107); Creatinine Clr Calc Pharmacy 181.6 ml/min; Est GFR (African American) > 150.0; Est GFR (Non-African American) 131.8; Globulin 3.9 gm/dl (2.5-4.0); Glucose 81 mg/dl (70-99); Lipase 94 U/L (73-393); Potassium 3.8 mmol/L (3.5-5.1); Sodium 138 mmol/L (136-145); Total Protein 6.2 gm/dl (6.4-8.2)
[2019-08-20] MEDS: PANTOprazole 40 MG in SYRINGE 0 ML IV SCH (08:43)
--- NOTE | 2019-08-20 10:24 | Gastroenterology Progress Note ---
Date of Service August 20, 2019 Assessment & Plan (1) Cholangitis: Pt is a 23 y/o female w hx of choledocholithiasis s/p removal and biliary stent placement via ERCP, then cholecystectomy about 1 week ago. She has persistent jaundice, elevated WBC, chills and was brought back yesterday for re peat ERCP last night which showed occluded stent, removed and exchanged, + signs of cholangitis (pus in bile duct) started on Zosyn. - Obtain acute hepatitis, viral hepatitis, autoimmune serologies - Trend LFTs - Advance diet as tolerated - Broad spectrum antibx x 10 days, avoid NSAIDs x 1 week - No contraindication for DC home; F/U in GI clinic in 2 weeks' time; if LFTs still elevated consider liver biopsy Admission and Anticipated Discharge Date Admission Date: August 19, 2019 Supervising Physician Co-Signing Physician Notes I performed a history and physical examination of the patient today, including specifically on physical exam - soft abdomen. I have discussed the patient's management with the advanced practitioner. Please refer to the nurse practitioner's note for the documented findings and plan of care. Patient initially presented with painless jaundice earlier this month, found with Gallstones and choledocholithiasis on ERCP, yesterday had urgent repeat for suspected stent occlusion. Indicated she is visiting her boyfriend and she lives in [place]. No sick contacts. Today she feels fine. Labs unchanged. Recommend: Need to check for Viral hepatitis, EBV, Autoimmune hepatitis, IgG-4 disease as her clinical picture is not entirely consistent with biliary obstruction. She is young for gallstones disease and wonder if she has dyslipidemia. If LFTs do not normalize in 2 weeks from now she will need Liver Bx. Advance diet. Recall GI if needed. Subjective Pt s/p ERCP w biliary stent exchange (old one appeared occluded), IV antibx for possible cholangitis as pus was seen. She denies fever, chills, CP, SOB, abd pain, n/v. Still having jaundice Review of Systems Review of Systems: All systems reviewed & are unremarkable except as noted in HPI & below Physical Exam Constitutional: WD/WN, vitals as above well groomed, cooperative and comfortable Eyes: + scleral abnormality (icteric) ENMT: external ear and nose normal, oropharynx normal Respiratory: normal respiratory effort, lungs clear to auscultation Cardiovascular: RRR, no murmur, no edema Gastrointestinal (Abdomen): normal bowel sounds, soft, nontender, no hepatosplenomegaly Skin: no rashes, warm and dry + jaundice Psychiatric: A+Ox3, euthymic affect Lymphatic: no lymphedema Results & Data ([facility]) Vital Signs (Past 12 Hours) Vital Signs Temp Pulse Pulse Resp BP BP Pulse Ox 08/20/19 07:15 36.3 C L 79 16 103/66 100 08/20/19 03:18 36.7 C 80 16 116/71 100 08/20/19 00:06 96 H 16 133/77 100 08/19/19 23:10 36.6 C 89 16 118/77 100
[2019-08-20] MEDS ORDERED: OXYCODONE HCL IR 5 MG TAB (IMMEDIATE RELEASE) PO PRN (11:17)
[2019-08-20 11:18] LABS: Hepatitis B Surface Antigen Neg (Neg)
[2019-08-20 11:47] LABS: Hepatitis C IgG 13Yrs+Old_Rflx Neg (Neg)
--- NOTE | 2019-08-20 14:03 | Discharge Summary ---
Date of Service August 20, 2019 Admission HPI Per Admitting Provider Priscilla is a 23 yo female who was recently admitted to [facility] on 08/13/19 with choledocholithiasis s/p intraoperative ERCP and biliary stent placement by Dr. Granda. She was discharged on 08/14/19 with a script for Ciprofloxacin, 500mg, BID, Cholestyramine and Oxycodone. In the days following her index discharge, she developed progressive abdominal pain, juandice, nausea, and shaking chills, which ultimately prompted her readmission. ED Course: Afebrile, HR 77, BP 116/77, 18, 99% on room air. WBC elevated to 13.9 with neutrophil predominance, up from 11.5 on 08/14/19. Total bilirubin 10.5, down from 12.3 on 08/04/19; directed bilirubin 8.1. Alk Phos 291, up from 274 on 08/14/19. Abdominopelvic CT scan showed no evidence of post-surgical biloma or hematoma. Emergency department provider consulted GI provider, who was concerned Priscilla may have an occluded biliary stent and developing cholangitis. She was immediately taken to the OR by Dr. Michaels for urgent biliary decompression and stent exchange. She was given a 1 liter bolus of normal saline and 4.5g of IV Zosyn prior to being taken to the OR. Admission Exam Per Admitting Provider Constitutional: WD/WN, vitals as above cooperative Eyes: + scleral abnormality (icterus) ENMT: external ear and nose normal, oropharynx normal Neck: normal visual inspection and trachea midline Respiratory: normal respiratory effort, lungs clear to auscultation Auscultation: no rales, no rhonchi and no wheezes Cardiovascular: RRR, no murmur, no edema Heart Sounds: normal S1 and normal S2 Gastrointestinal (Abdomen): Inspection/Auscultation: normal bowel sounds and + abdominal surgical incision (dry bandages covering laproscopic sites; no surrounding erythema or warmth); abdomen not distended Percussion/Palpation: + abdomen tender (right upper quadrant) and abdomen soft; no guarding Skin: + jaundice Psychiatric: A+Ox3, euthymic affect Principal Diagnosis Acute ascending cholangitis Discharge Exam Patient feeling well. Bilirubin downtrending. No abdominal pain, nausea or vomiting. Passing flatus. Given option of staying one more night for repeat labs in AM versus discharge home later in the afternoon as long as tolerating diet and she opted for discharge. Constitutional WD/WN, vitals as above Eyes + scleral abnormality (icteric) Respiratory normal respiratory effort; no respiratory distress Auscultation: lungs clear to auscultation bilaterally; no rales, no rhonchi and no wheezes Cardiovascular Rate/Rhythm: regular rate and regular rhythm Gastrointestinal (Abdomen) Inspection/Auscultation: abdomen normal to inspection and normal bowel sounds; abdomen not distended Percussion/Palpation: abdomen soft; abdomen nontender, no guarding and abdomen not rigid Skin + jaundice Psychiatric A+Ox3, euthymic affect Lymphatic no lymphedema Discharge Data Allergies Allergy/AdvReac Type Severity Reaction Status Date / Time Sulfa (Sulfonamide Allergy Mild Hives Verified 08/19/19 17:09 Antibiotics) Consultations 08/19/19 18:26 ED Decision to Admit Stat Procedures Performed Operation Date: 08/19/19 18:35 Actual Procedures p Endoscopic Retrograde Cholangiopancreatography(Not Applicable) - Chi Michaels Ordered Studies 08/19/19 16:39 CT abd pelvis IV con only Stat 08/19/19 18:34 [place] ERCP biliary ductal Routine Hospital Course (1) Cholangitis: Priscilla Madden is a 23 year old female recently admitted for recently for choledocholithiasis (discharged August 13). Returned to ER (August 18) mostly due to worsening/persistent jaundice but also having some abdominal pain, nausea and chills. Discharged previously with up trending bilirubin after ERCP and stent placement. Bilirubin in ER had decreased from her last discharge but not as much as would be expected and subjective chills and elevated WBC was concerning for cholangitis. She was taken for emergent ERCP and stent was occluded with sludge and pus consistent with acute cholangitis. New biliary stent successfully replaced and she was treated IV Zosyn before switched to ciprofloxacin and metronidazole on discharge. Concern from gastroenterology regarding possible alternative etiology for elevated ALP and bilirubin therefore autoimmune and viral hepatitis panel was taken but pending at time of discharge. She should follow up with GI (Dr Michaels) in 2 weeks. Plan to repeat CMP next week. (2) Hyperbilirubinemia: Total Time Total Time Spent Total Time Spent (In Minutes): 35 Total Time Includes: Examination of the Patient, Discharge Planning, Medication Reconciliation and Communication With Other Providers (Debi Felder) Discharge Plan Discharge Items Patient Disposition: Home - Self-Care Reason For Visit: Jaundiced Discharge Diagnosis: Acute ascending cholangitis, biliary stent exchange Condition on Discharge: Good Activity: Resume your previous activity Non-emergency contact: Real Estate Closer Call non-emergency contact if: you have any medication questions, your symptoms worsen and you have a fever Follow-up/Referrals: Chi Michaels [Physician] - (Follow up in 2 weeks) PCPPRATIBHA [Primary Care Provider] - Diet: Low Fat Ambulatory Orders: Comprehensive Metabolic Panel (Routine) Timeframe: [id number] Location: Determined by Patient Ordered By: Luis Hernadez Attending Provider Instructions: You recently had your gallbladder removed and a stent placed due to block gall stone in . You came to the ER because of abdominal pain, jaundice, nausea, and chills. During this hospital stay, it was found that the stent was blocked. This was replaced. Your white blood cell count was elevated and there were also signs of infection during the procedure so you were started on antibiotics. This is called acute cholangitis. Please finish the ciprofloxacin you already have prescribed at home in addition to the two pills given here for a total course of 7 days. An additional antibiotic (metronidazole) is also prescribed - you should not drink alcohol while on this antibiotic. You should avoid taking ibuprofen (Advil, Motrin, Aleve, etc) for one week. Please take acetaminophen and oxycodone as previously prescribed for pain. Follow up with GI in 2 weeks. Appointment to be arranged. Please call the number above if you do not hear anything by Friday of next week. Pending Studies at Discharge: Yes (hepatitis, CMV, EBV, HSV, and parvovirus panel, IgG panel ) Stand-Alone Forms: My [facility] cafegive, Smoking Cessation Medications and DC Order Prescriptions: New metronidazole 500 mg tablet 500 mg PO TID 7 Days Qty: 21 RF: 0 famotidine 20 mg tablet 20 mg PO DAILY PRN (Reason: heartburn) Qty: 14 RF: 0 Continued L norgest/e.estradiol-e.estrad [Daysee] 0.15 mg-30 mcg (84)/10 mcg (7) Tablets,Dose Pack,3 Month 1 tab PO DAILY RF: 0 Cholestyramine Light 4 gram powder in packet 4 gm PO BID Qty: 60 RF: 0 acetaminophen [Tylenol Arthritis Pain] 650 mg tablet extended release 650 mg PO Q8H PRN (Reason: Fever Or Pain) RF: 0 hydroxyzine HCl 25 mg tablet 25 mg PO Q8H PRN (Reason: Itching) RF: 0 ciprofloxacin HCl [Cipro] 500 mg tablet 500 mg PO BID 7 Days Qty: 14 RF: 0 Discontinued oxycodone 5 mg tablet 5 mg PO Q8H PRN (Reason: Severe Pain (Scale Score 7-10)) RF: 0 Discharge Orders: Discharge Order (Routine); Ordered 08/20/19 Ordered By: Luis Rocha Admission Data Admit Date/Time: 08/19/19 21:57 Attending Provider: Luis Rocha Admit Provider: Camila Burks Primary Care Provider: PCP,NO Other Providers: Luis Fernandez Other Interventions: Discharge Summary Assessment (RN) Last Done: 08/20/19 14:30 DC Date/Time DO NOT enter until pt leaves facility: 08/20/19 15:56 Coding Level of Care Code D/C Day Management >30 mins Diagnoses Cholangitis K83.09 Hyperbilirubinemia E80.6
[2019-08-20] MEDS ORDERED: CIPROFLOXACIN 500MG HOME PACK PO SCH (21:00)
[2019-08-21 03:20] LABS: Hepatitis A Antibody IgM NON-REACTIVE (NON-REACTIVE); Hepatitis B Core Antibody IgM NON-REACTIVE (NON-REACTIVE)
[2019-08-23 13:25] LABS: Immunoglobulin G4 41.1 mg/dL (4.0-86.0)
[2019-08-26 10:35] LABS: Alpha 1 Antitrypsin 252 mg/dL (83-199); Anti Nuclear Antibody Screen NEGATIVE (NEGATIVE); CMV IgG Antibody <0.60 U/mL; CMV IgM Antibody <30.00 AU/mL; Ceruloplasmin >66 mg/dL (18-53); Herpes Simplex Ab IgG-1 <0.90 index; Herpes Simplex Ab IgG-2 1.55 index; Parvovirus IgG 4.7 (<0.9); Parvovirus IgM 0.1 (<0.9); Smooth Muscle Antibody NEGATIVE (NEGATIVE)
== END 2019-08-20 15:56 | disposition home or self-care (01) | DRG 445 ==
LOC: ED 16:31 → OR 19:09 → 3E 21:57 → SUATTDRO 21:57